=== PATIENT | female | born 1950 | race Caucasian/White ===

== ENCOUNTER → 2018-03-07 13:50 | Outpatient (CLI) | payer OTHER, SELFPAY ==
--- NOTE | 2018-03-07 14:03 | BI_ITS ---
MAMMOGRAPHY - UNILATERAL DIAGNOSTIC: LEFT BREAST REASON FOR EXAM: Female, 67 years old. Abnormal screening mammogram. PERTINENT HISTORY: Non-contributory. TECHNIQUE: 90 degree lateral view of the left breast was obtained. CAD: Full Field Digital Mammography with Computer Added Detection was performed. COMPARISON: Comparison is made with prior study dated February 04, 2018. FINDINGS: Breast Composition: The breasts are heterogeneously dense, which may obscure small masses. There is an 8.5 mm x 6.6 mm well-defined nodule in the superior slightly lateral aspect of the breast. Core lesion with ultrasound is recommended. No other significant abnormalities are identified. BI/DIAG MAMM W/CAD, UNILAT IMPRESSION: Subcentimeter density at the 11:00 position of the breast as described. Correlation with ultrasound is recommended. ASSESSMENT CATEGORY: BIRADS Category 0: Incomplete. Need additional imaging evaluation. A letter regarding these results will be sent to the patient by the facility within 30 days. Approximately 10% of breast cancers are not detected by mammography. A normal mammogram should not delay biopsy of a clinically suspicious abnormality. Electronically Signed: Jeremiah Montenegro MD at 15:33 EST Tel [phone], Service support ,
--- NOTE | 2018-03-07 14:19 | US_ITS ---
STUDY: ULTRASOUND BREAST - LEFT REASON FOR EXAM: Female, 67 years old. Abnormal mammogram. TECHNIQUE: Axial and longitudinal images of the LEFT breast were performed with a high resolution ultrasound transducer. COMPARISON: Comparison is made with prior outside examination dated February 04, 2018 and prior mammogram done earlier in the day. FINDINGS: LEFT Breast: There is a 1 cm x 0.8 cm x 0.6 cm cyst at the 11 o'clock position breast at 1 cm from the nipple. US/Breast Limited Unilateral IMPRESSION: The mammographic and a mildly corresponds to a 1 cm x 0.8 cm x 0.6 cm cyst. ASSESSMENT CATEGORY: BIRADS Category 2: Benign. A letter regarding these results will be sent to the patient by the facility within 30 days. Electronically Signed: Jeremiah Montenegro MD at 15:30 EST Tel [phone], Service support ,
== END ==
PROVIDERS: Family Provider Preventive Medicine Occupational Medicine; PCP Preventive Medicine Occupational Medicine; Referring Provider Obstetrics & Gynecology; Visit Provider Nurse Practitioner Family
DX: R92.8 Other abnormal and inconclusive findings on diagnostic imaging of breast (principal)
CPT/HCPCS: 76642; 77065

== ENCOUNTER 2018-05-23 06:46 | Day surgery (SDC) | payer MEDICARE, SELFPAY ==
[2018-05-23 07:02] VITALS: BP 152/97; PULSE 89; RESP 16; TEMP 36; O2SAT 100; BMI 30.1
--- NOTE | 2018-05-23 08:28 | PCM.HP.STD ---
Problem List (1) Family history of colon cancer Status: Acute History of Present Illness Date of Admission: 05/23/18 The patient is a 67 year old F who presents for a colonoscopy. She has a fairly history of colon cancer in both her sister and her father. She is not been complaining of any abdominal complaints. Past Medical History Allergies codeine Adverse Reaction (Verified 05/23/18 07:06) Vomiting Home Medications: Ambulatory Orders Medication Instructions Recorded Cholecalciferol (VIT D3) [Vitamin 1,000 unit PO DAILY 01/22/14 D3] Multivit-Min/FA/Lycopene/Lut 1 each PO DAILY 01/22/14 [Centrum Silver Tablet] Nortriptyline HCl 25 mg PO QHS 01/22/14 Omeprazole [Prilosec] 20 mg PO BID 01/22/14 Vitamin B 100 1 tab PO DAILY 01/22/14 Levothyroxine Sodium [Levoxyl] 150 mcg PO AVILES@0600 02/13/14 Levothyroxine [Synthroid] 100 mcg PO MOTUWETHFRSA@0600 02/13/14 Triamterene/Hydrochlorothiazid 0.5 - 1 tab PO QHS 02/13/14 [Triamterene-Hctz 37.5-25 mg Tb] Aspirin [Aspir 81] 81 mg PO QHS 05/19/18 Lorazepam [Ativan] 0.5 mg PO BID 05/19/18 Meloxicam [Mobic] 15 mg PO DAILY 05/19/18 Smoking Status: Former smoker Tobacco Use: Non-smoker - *Family History Sibling History Items: Cancer - Only cancer Paternal History Items: Cancer - Colon cancer Review of Systems Constitutional: Denies: Chills, Fever, Weight Change Cardiovascular: Denies: Chest Pain, Chest Pressure, Chest Tightness, Palpitations Respiratory: Denies: Cough, Hemoptysis, Shortness of breath at rest, Shortness of breath upon exertion, Wheezing Gastrointestinal: Denies: Abdominal Pain, Constipation, Diarrhea, Hematemesis, Nausea, Melena, Vomiting VTE Information - Inpt Only VTE Present on Admission: No VTE Mechan Device Prophylaxis: SCD's VTE Pharm Prophylaxis ordered?: No Reason prophylaxis not ordered:: Treatment Not Indicated Patient Problems: Active and Suspected Problems Family history of colon cancer (Acute) - Physical Exam General: Alert, Oriented x3 Lungs: Clear to auscultation Cardiovascular: Regular rate, Regular Rhythm, No murmurs Abdomen: Bowel Sounds Present, Soft, Non Tender, Non-Distended Vital Signs Temp Pulse Resp BP Pulse Ox 96.8 F L 89 16 152/97 H 100 05/23/18 07:02 05/23/18 07:02 05/23/18 07:02 05/23/18 07:02 05/23/18 07:02 Oxygen Delivery Method Room Air Weight: 192 lb 7.417 oz Body Mass Index (BMI) 30.1 Assessment/Plan All Active Problems Family history of colon cancer (Acute) Plan will be to perform a colonoscopy. Risk benefits were reviewed with the patient. They include bleeding possible injury to the colon which could require further surgery. She agrees to proceed.
[2018-05-23 08:30] VITALS: BP 152/97; BP 158/91; PULSE 80; RESP 16; TEMP 36.1; O2SAT 93
--- NOTE | 2018-05-23 08:33 | OP.ENDO_ITS ---
05/23/2018 Bienvenido Morales [address] [place] [address] Re : Colonoscopy procedure for Jessica Ray Dear Dr. Morales This procedure was performed on Wednesday, May 23, 2018. My impressions and recommendations are as follows: Impressions : - Diverticulosis in the sigmoid colon. - The examination was otherwise normal. - No specimens collected. Recommendations : - Discharge patient to home. - Resume previous diet. - Continue present medications. - Repeat colonoscopy in 5 years for surveillance. - Return to primary care physician at appointment to be scheduled. My findings are described in the full procedure note, which is enclosed. If I can be of further assistance, please feel free to contact me at Doctor phone number(s): , Fax: [phone], Work: . Sincerely, MD Jay Jane MD 05/23/2018 8:33:04 AM This report has been signed electronically.
[2018-05-23 08:35] VITALS: BP 152/97; BP 177/82; PULSE 89; RESP 16; O2SAT 94
[2018-05-23 08:40] VITALS: BP 152/97; BP 163/82; PULSE 89; RESP 18; O2SAT 95
[2018-05-23 08:46] VITALS: BP 152/97; BP 167/87; PULSE 75; RESP 16; TEMP 36.3; O2SAT 95
== END 2018-05-23 09:37 | disposition home or self-care (01) ==
LOC: EN 06:47 → AC 06:49
PROVIDERS: Family Provider Preventive Medicine Occupational Medicine; PCP Preventive Medicine Occupational Medicine; Referring Provider Surgery; Visit Provider Surgery
PROC: 0DJD8ZZ Inspection of Lower Intestinal Tract, Via Natural or Artificial Opening Endoscopic (ICD-10-PCS; CPT 45378; principal; 2018-05-23 07:55)
DX: K57.30 Diverticulosis of large intestine without perforation or abscess without bleeding (principal); I10 Essential (primary) hypertension; Z80.0 Family history of malignant neoplasm of digestive organs; Z87.891 Personal history of nicotine dependence
CPT/HCPCS: G0105; J7120; J1610; J2405

== ENCOUNTER → 2019-11-21 15:11 | Outpatient (CLI) | payer MEDICARE, SELFPAY ==
--- NOTE | 2019-11-21 15:16 | US_ITS ---
STUDY: RENAL ULTRASOUND - COMPLETE REASON FOR EXAM: Female, 69 years old. Chronic kidney disease. TECHNIQUE: Ultrasound evaluation of the kidneys was performed with real-time and static jacobson-scale imaging. COMPARISON: None. FINDINGS: RIGHT KIDNEY: Normal location of the right kidney, which is normal in size. The right kidney measures 7.9 cm. There is diffuse thinning of the renal cortex. The renal cortex measures 0.9 cm. Prominent column of LIZY. There is no right renal mass or cyst. There are no right renal calculi. There is no right hydronephrosis. DISTAL RIGHT URETER: There is non-visualization of the distal right ureter. There is no demonstrated right ureterovesical junction calculus. There is no demonstrated right ureteral jet. LEFT KIDNEY: Normal location of the left kidney, which is normal in size. The left kidney measures 9.3 cm. There is diffuse thinning of the renal cortex. The renal cortex measures 0.8 cm. Prominent column of LIZY. There is no left renal mass or cyst. There are no left renal calculi. There is no left hydronephrosis. DISTAL LEFT URETER: There is non-visualization of the distal left ureter. There is no demonstrated left ureterovesical junction calculus. There is no demonstrated left ureteral jet. BLADDER: The distended urinary bladder has a volume of 435 ml. There is a normal wall thickness of the distended urinary bladder. There is no demonstrated mass within the urinary bladder. There are no demonstrated bladder calculi. US/Kidney and Bladder IMPRESSION: Low normal small kidneys with bilateral cortical thinning. Electronically Signed: Dickson Parekh DO at 21:23 EDT Tel [phone], Service support ,
[2019-11-21 16:33] LABS: Hematocrit 39.7 % (37-47); Mean Corp Hgb Conc 32.7 g/dL (32-36); Mean Corpuscular Hgb 31.6 pg (27.0-32.0); Mean Corpuscular Volume 96.6 fL (81-99); Platelet Count 286 K/mm3 (150-450); RBC Distribution Width CV 12.6 % (11.6-14.6); RBC Distribution Width SD 44.4 fl (35.1-43.9); Red Blood Count 4.11 M/mm3 (4.2-5.4); White Blood Count 6.6 K/mm3 (4.4-11.0)
[2019-11-21 16:45] LABS: Protein, Urine (Random) < 6.0 mg/dL (<11.9)
[2019-11-21 17:06] LABS: Color, Urine Yellow (Yellow); Glucose, Dipstick Normal (Normal); Ketone-Dipstick Negative (Negative); Leukocyte Esterase-Dipstick Negative /ul (Negative); Nitrite-Dipstick Negative (Negative); Occult Blood-Urine Negative /ul (Negative); Protein-Dipstick Negative (Negative); Urine Bilirubin Dipstick Negative (Negative); Urine Clarity Clear (Clear); Urine Urobilinogen Normal (Normal); Urine pH 6.5 (5.0 - 8.0)
[2019-11-21 17:21] LABS: Anion Gap 3 (5-15); BUN 21 mg/dL (7-18); BUN/Creat Ratio 13.5 RATIO (10-20); Chloride 107 mmol/L (98-107); Creatinine, Serum 1.55 mg/dL (0.55-1.02); EST Glomerular Filtration Rate 35 mL/min (>60); Est Glom Filt Rate - Afr Amer 43 mL/min (>60); Ferritin 194 ng/mL (8-252); Glucose 99 mg/dL (74-106); Iron 66 ug/dL (50-170); Iron Binding Capacity,Total 253 ug/dL (250-450); PERCENT IRON SATURATION 26.1 % (15.0-55.0); Potassium 4.2 mmol/L (3.5-5.1); Sodium Level 143 mmol/L (136-145); Uric Acid 6.8 mg/dL (2.6-6.0)
[2019-11-21 17:52] LABS: Vitamin D,25 Hydroxy 33.6 ng/mL
[2019-11-22 09:55] LABS: PTHIN 37.9 pg/mL (18.4-80.1)
== END ==
PROVIDERS: PCP Preventive Medicine Occupational Medicine; Referring Provider Student in an Organized Health Care Education/Training Program; Visit Provider Student in an Organized Health Care Education/Training Program
DX: N18.3 Chronic kidney disease, stage 3 (moderate) (principal); D63.1 Anemia in chronic kidney disease; E55.9 Vitamin D deficiency, unspecified
CPT/HCPCS: 36415; 76770; 80048; 81002; 82306; 82570; 82728; 83540; 83550; 83970; 84156; 84550; 85027

== ENCOUNTER → 2020-01-09 12:55 | Outpatient (CLI) | payer MEDICARE, SELFPAY ==
[2020-01-09 15:17] LABS: Anion Gap 4 (5-15); BUN 21 mg/dL (7-18); BUN/Creat Ratio 13.5 RATIO (10-20); Calcium,Total 9.2 mg/dL (8.5-10.1); Chloride 108 mmol/L (98-107); Creatinine, Serum 1.56 mg/dL (0.55-1.02); EST Glomerular Filtration Rate 35 mL/min (>60); Est Glom Filt Rate - Afr Amer 42 mL/min (>60); Glucose 94 mg/dL (74-106); Sodium Level 141 mmol/L (136-145)
== END ==
PROVIDERS: PCP Preventive Medicine Occupational Medicine; Referring Provider Student in an Organized Health Care Education/Training Program; Visit Provider Student in an Organized Health Care Education/Training Program
DX: N18.30 Chronic kidney disease, stage 3 unspecified (principal)
CPT/HCPCS: 36415; 80048

== ENCOUNTER → 2020-03-06 08:42 | Outpatient (CLI) | payer MEDICARE, SELFPAY ==
--- NOTE | 2020-03-06 08:45 | RDU_ITS ---
Reason For Study: HTN Right Renal Artery Left Renal Artery Right renal artery ostium 97.3/11.5 Left renal artery ostium 90.2/17.1 RSV/EDV. PSV/EDV. Right renal artery proximal Left renal artery proximal PSV/EDV 104.6/17 PSV/EDV. 133.6/36.9 . Right renal artery mid 88.2/13.3 Left renal artery mid 85.7/27.2 PSV/EDV. PSV/EDV . Right renal artery distal 85.3 Left renal artery distal 91.1/21.7 PSV/EDV. PSV/EDV. Right RAR 1.07. Left RAR 1.37. Right Renal Parenchyma Left Renal Parenchyma Upper Pole Medula 24.9/6.8 PSV/EDV. Left upper pole medulla 34.6/10.9 Right upper pole medulla EDR 0.27 . PSV/EDV . Right upper pole medulla R.I. Left upper pole medulla EDR 0.31 . 0.73 . Left upper pole medulla R.I. 0.69 . Upper Lorenzo Cortx 16.1/5.1 PSV/EDV. UP Cortex 26.4/9 PSV/EDV. Right upper pole cortex EDR 0.32 . Left upper pole cortex EDR 0.34 . Right upper pole cortex R.I. 0.68 . Left upper pole cortex R.I. 0.66 . Right lower Pole medulla 22.7/7.3 Left lower Pole medulla 32.8/9 PSV/EDV . PSV/EDV . Right lower pole medulla EDR 0.32 . Left lower pole medulla EDR 0.28 . Right lower pole medulla R.I. Left lower pole medulla R.I. 0.72 . 0.68 . Lower Pole Cortx 24.6/8.1 PSV/EDV. Lower Pole Cortex 16.1/5.1 PSV/EDV. Left lower pole cortex EDR 0.33 . Right lower pole cortex EDR 0.32 . Left lower pole cortex R.I. 0.67 . Right lower pole cortex R.I. 0.68 . Left Renal Hilar Right Renal Hilar LT Hilar avg 49.2/17.5 PSV/EDV . Right Hilar avg 41.3/11.1 PSV/EDV. Left hilar acceleration time 100 Right hilar acceleration time 80 m/sec. m/sec. Left Renal Dimensions Right Renal Dimensions Left kidney size 9.35 cm . Right kidney size 7.31 cm . Left cortical dimension 1.04 cm . Right cortical dimension 0.84 cm . Aorta Proximal abdominal aorta 1.48 x 1.48 cm . Proximal abdominal aorta peak systolic velocity is 97.4 cm/sec . Distal abdominal aorta 1.38 x 1.38 cm . Distal abdominal aorta peak systolic velocity is 75.4 cm/sec . Interpretation Summary Dimensions of the intra-abdominal aorta appear normal, without evidence of aneurysmal dilatation. Renal artery velocities are bilaterally normal. The right acceleration time is normal . The left acceleration time is elevated . Renal-aortic ratios are bilaterally normal. There is no evidence of hemodynamically significant renal artery stenosis on either side. Renovascular resistance appears to be bilaterally normal . The right cortical dimension is decreased. The left cortical dimension is normal. The right kidney is small in size. The left kidney is normal in size. Ordering Physician: Rosaura Atkins Referring Physician: Bienvenido Morales Performed By: Hanna Suazo RVT
== END ==
PROVIDERS: PCP Preventive Medicine Occupational Medicine; Referring Provider Internal Medicine Nephrology; Visit Provider Internal Medicine Nephrology
DX: I12.9 Hypertensive chronic kidney disease with stage 1 through stage 4 chronic kidney disease, or unspecified chronic kidney disease (principal); N18.32 Chronic kidney disease, stage 3b
CPT/HCPCS: 93975

== ENCOUNTER → 2020-04-11 11:13 | Outpatient (CLI) | payer MEDICARE, SELFPAY ==
[2020-04-11 11:54] LABS: Hematocrit 43.5 % (37-47); Hemoglobin 14.3 g/dL (12.0-15.0); Mean Corp Hgb Conc 32.9 g/dL (32-36); Mean Corpuscular Hgb 31.5 pg (27.0-32.0); Mean Corpuscular Volume 95.8 fL (81-99); Mean Platelet Vol. 11.8 fl (6.2-12.0); Platelet Count 308 K/mm3 (150-450); RBC Distribution Width CV 13.1 % (11.6-14.6); Red Blood Count 4.54 M/mm3 (4.2-5.4); White Blood Count 7.3 K/mm3 (4.4-11.0)
[2020-04-11 12:16] LABS: Albumin, Serum 3.8 g/dL (3.2-5.0); BUN 21 mg/dL (7-18); BUN/Creat Ratio 13.8 RATIO (10-20); Calcium,Total 9.2 mg/dL (8.5-10.1); Chloride 105 mmol/L (98-107); Creatinine, Serum 1.52 mg/dL (0.55-1.02); EST Glomerular Filtration Rate 36 mL/min (>60); Est Glom Filt Rate - Afr Amer 44 mL/min (>60); Glucose 120 mg/dL (74-106); Phosphorus 3.1 mg/dL (2.5-4.9); Potassium 4.1 mmol/L (3.5-5.1); Sodium Level 140 mmol/L (136-145)
== END ==
PROVIDERS: PCP Preventive Medicine Occupational Medicine; Referring Provider Internal Medicine Nephrology; Visit Provider Internal Medicine Nephrology
DX: N18.32 Chronic kidney disease, stage 3b (principal)
CPT/HCPCS: 36415; 80069; 83970; 85027

== ENCOUNTER → 2020-09-11 13:33 | Outpatient (CLI) | payer MEDICARE, SELFPAY ==
--- NOTE | 2020-09-11 13:35 | BI_ITS ---
MAMMOGRAPHY - BILATERAL SCREENING REASON FOR EXAM: Female, 69 years old. Routine annual screening examination. PERTINENT HISTORY: Non-contributory. TECHNIQUE: Digital bilateral breast adryan (3D mammographic acquisition) in the CC and MLO projections. 2-D mediolateral oblique (MLO) and craniocaudad (CC) views of both breasts were obtained. CAD: Full Field Digital Mammography with Computer Added Detection was performed. COMPARISON: Comparison is made with prior unilateral mammogram dated 03/07/2018. FINDINGS: Breast Composition: The breasts are heterogeneously dense, which may obscure small masses. There are no dominant masses or suspicious calcifications. Stable small benign-appearing bilateral axillary lymph nodes. No other significant abnormalities are identified. There has been no significant change since the prior study. BI/SCRN MAMM (CAD)W/ADRYAN BILAT IMPRESSION: Stable bilateral screening mammogram. Yearly follow-up mammogram recommended. (A) ASSESSMENT CATEGORY: BIRADS Category 2: Benign. A letter regarding these results will be sent to the patient by the facility within 30 days. Approximately 10% of breast cancers are not detected by mammography. A normal mammogram should not delay biopsy of a clinically suspicious abnormality. [id number] Electronically Signed: Jeremiah Montenegro MD at 14:17 EDT , Service support ,
== END ==
PROVIDERS: PCP Preventive Medicine Occupational Medicine; Referring Provider Obstetrics & Gynecology; Visit Provider Obstetrics & Gynecology
DX: Z12.31 Encounter for screening mammogram for malignant neoplasm of breast (principal)
CPT/HCPCS: 77063; 77067

== ENCOUNTER → 2020-10-16 11:07 | Outpatient (CLI) | payer MEDICARE, SELFPAY ==
[2020-10-16 12:20] LABS: Albumin, Serum 3.9 g/dL (3.2-5.0); BUN 23 mg/dL (7-18); BUN/Creat Ratio 16.3 RATIO (10-20); Calcium,Total 9.1 mg/dL (8.5-10.1); Chloride 102 mmol/L (98-107); Creatinine, Serum 1.41 mg/dL (0.55-1.02); EST Glomerular Filtration Rate 39 mL/min (>60); Est Glom Filt Rate - Afr Amer 47 mL/min (>60); Glucose 102 mg/dL (74-106); Potassium 4.3 mmol/L (3.5-5.1); Sodium Level 140 mmol/L (136-145)
== END ==
PROVIDERS: PCP Preventive Medicine Occupational Medicine; Referring Provider Internal Medicine Nephrology; Visit Provider Internal Medicine Nephrology
DX: N18.32 Chronic kidney disease, stage 3b (principal)
CPT/HCPCS: 36415; 80069

== ENCOUNTER → 2020-12-23 09:48 | Outpatient (CLI) | payer MEDICARE, SELFPAY | PROVIDERS: PCP Preventive Medicine Occupational Medicine; Visit Provider Physician Assistant | DX: Z20.822 Contact with and (suspected) exposure to COVID-19 (principal) | CPT/HCPCS: 87635; U0005; U0003 ==

== ENCOUNTER 2021-03-27 11:12 | Outpatient (CLI) | payer MEDICARE, SELFPAY ==
[2021-03-27 12:24] LABS: Erythrocyte Sedimentation Rate 7 mm/hr (0-30)
[2021-03-27 12:27] LABS: Hematocrit 40.2 % (37-47); Hemoglobin 13.3 g/dL (12.0-15.0); Mean Corp Hgb Conc 33.1 g/dL (32-36); Mean Corpuscular Hgb 32.2 pg (27.0-32.0); Mean Corpuscular Volume 97.3 fL (81-99); Platelet Count 238 K/mm3 (150-450); RBC Distribution Width SD 46.4 fl (35.1-43.9); Red Blood Count 4.13 M/mm3 (4.2-5.4); White Blood Count 5.1 K/mm3 (4.4-11.0)
[2021-03-27 13:19] LABS: CRP 4.46 mg/L (0.0-3.0); Rheumatoid Factor < 10.0 IU/mL (<15)
[2021-03-28 19:04] LABS: ANTINUCLEAR ANTIBODIES DIRECT Negative (Negative)
[2021-03-28 21:44] LABS: CCP IgG Antibodies 5 units (0-19)
== END 2021-03-27 23:59 | disposition short-term general hospital (02) ==
LOC: LAB 11:15
PROVIDERS: PCP Preventive Medicine Occupational Medicine; Referring Provider Orthopaedic Surgery Hand Surgery; Visit Provider Orthopaedic Surgery Hand Surgery
DX: M19.041 Primary osteoarthritis, right hand (principal); N18.32 Chronic kidney disease, stage 3b
CPT/HCPCS: 36415; 85027; 85652; 86038; 86140; 86200; 86431

== ENCOUNTER 2021-04-10 10:12 | Outpatient (CLI) | payer MEDICARE, SELFPAY ==
--- NOTE | 2021-04-10 10:25 | EKG12_ITS ---
Test Reason : PRE-OP Blood Pressure : / mmHG Vent. Rate : 064 BPM Atrial Rate : 064 BPM P-R Int : 142 ms QRS Dur : 088 ms QT Int : 424 ms P-R-T Axes : 030 -24 -16 degrees QTc Int : 437 ms Normal sinus rhythm with sinus arrhythmia Poor R wave progression Nonspecific T wave abnormality Confirmed by MARIA L COVARRUBIAS, BATSHEVA ([id number]), photography editor WATSON AYERS ([id number]) on 04/11/2021 10:56:41 AM Referred By: ISAURA Confirmed By:BATSHEVA LISA MD
[2021-04-10 12:25] LABS: Hemoglobin 13.3 g/dL (12.0-15.0)
[2021-04-10 12:49] LABS: Anion Gap 3 (5-15); BUN 23 mg/dL (7-18); BUN/Creat Ratio 17.7 RATIO (10-20); Calcium,Total 8.6 mg/dL (8.5-10.1); Chloride 107 mmol/L (98-107); EST Glomerular Filtration Rate 43 mL/min (>60); Est Glom Filt Rate - Afr Amer 52 mL/min (>60); Glucose 104 mg/dL (74-106); Potassium 4.6 mmol/L (3.5-5.1); Sodium Level 139 mmol/L (136-145)
== END 2021-04-10 23:59 | disposition home or self-care (01) ==
PROVIDERS: PCP Preventive Medicine Occupational Medicine; Visit Provider Orthopaedic Surgery Hand Surgery
DX: Z01.810 Encounter for preprocedural cardiovascular examination (principal); M19.041 Primary osteoarthritis, right hand; M71.341 Other bursal cyst, right hand
CPT/HCPCS: 36415; 80048; 85018; 93005

== ENCOUNTER 2021-06-04 11:05 | Outpatient (CLI) | payer MEDICARE, SELFPAY ==
[2021-06-04 12:17] LABS: Albumin, Serum 3.6 g/dL (3.2-5.0); BUN 25 mg/dL (7-18); BUN/Creat Ratio 17.2 RATIO (10-20); Calcium,Total 9.3 mg/dL (8.5-10.1); Chloride 108 mmol/L (98-107); Creatinine, Serum 1.45 mg/dL (0.55-1.02); EST Glomerular Filtration Rate 38 mL/min (>60); Est Glom Filt Rate - Afr Amer 46 mL/min (>60); Glucose 96 mg/dL (74-106); Phosphorus 2.7 mg/dL (2.5-4.9); Potassium 4.5 mmol/L (3.5-5.1); Sodium Level 138 mmol/L (136-145)
== END 2021-06-04 23:59 | disposition home or self-care (01) ==
LOC: LAB 11:08
PROVIDERS: PCP Preventive Medicine Occupational Medicine; Referring Provider Internal Medicine Nephrology; Visit Provider Internal Medicine Nephrology
DX: N18.32 Chronic kidney disease, stage 3b (principal)
CPT/HCPCS: 36415; 80069

== ENCOUNTER 2021-06-11 13:03 | Outpatient (CLI) | payer MEDICARE, SELFPAY ==
[2021-06-11 13:06] LABS: Bacteria 0 SEEN /hpf (None Seen); Mucous, Urine 0 SEEN /hpf (<or=2+); Red Blood Cells-Urine 0 SEEN /hpf (0-5); Squamous Epithelial Cells - UA 0 SEEN /hpf (5-10); White Blood Cells 0 SEEN /hpf (0-5)
[2021-06-11 15:02] LABS: Glucose, Dipstick Normal (Normal); Ketone-Dipstick Negative (Negative); Leukocyte Esterase-Dipstick 25 /ul (Negative); Nitrite-Dipstick Negative (Negative); Occult Blood-Urine Negative /ul (Negative); Protein-Dipstick Negative (Negative); Specific Gravity, Urine 1.015 (1.002-1.030); Urine Bilirubin Dipstick Negative (Negative); Urine Urobilinogen Normal (Normal)
[2021-06-11 15:19] LABS: Color, Urine Yellow (Yellow); Urine Clarity Clear (Clear)
== END 2021-06-11 23:59 | disposition home or self-care (01) ==
LOC: LABSPEC 13:03
PROVIDERS: PCP Preventive Medicine Occupational Medicine; Visit Provider Internal Medicine Nephrology
DX: R30.9 Painful micturition, unspecified (principal)
CPT/HCPCS: 81001

== ENCOUNTER → 2021-08-28 | Outpatient (CLI) | payer MEDICARE, SELFPAY ==
--- NOTE | 2021-08-28 12:26 | CT_ITS ---
STUDY: CT SCAN LOWER EXTREMITY LEFT REASON FOR EXAM: Female, 70 years old. KNEE ANDRESSA RADIATION DOSAGE (If Supplied By Facility): CTDIvol = ( 18.77 ) mGy, DLP = ( 1182.15 ) mGycm. Individualized dose optimization techniques were used for this CT.? TECHNIQUE: Multiple axial tomographic images of the left lower extremity were obtained. Coronal and sagittal reconstruction with thin as well. COMPARISON: None. FINDINGS: Imaging of the hip joint was obtained. There is a mild degree of joint space narrowing. No significant abnormality is seen. Imaging of the knee joint was obtained. There is a marked degree of joint space narrowing involving the medial compartment of knee joint with degenerative spur formation. There is a mild degree of joint space narrowing of the lateral compartment with degenerative spur formation. Small subchondral geodes seen in the lateral tibial plateau. Imaging of the ankle joint was obtained. No significant abnormality is seen. Marked degree of joint space narrowing involving the patellofemoral joint with large anterior distal femoral degenerative spur. Small joint effusion. CT/Extremity Lower without Contra IMPRESSION: Marked in degree of joint space narrowing involving the medial compartment of the knee joint and patellofemoral joint with degenerative spur formation. Small joint effusion. Electronically Signed: Jeremiah Montenegro MD at 13:54 EDT ,
== END | disposition home or self-care (01) ==
PROVIDERS: PCP Preventive Medicine Occupational Medicine; Referring Provider Orthopaedic Surgery; Visit Provider Orthopaedic Surgery
DX: M17.12 Unilateral primary osteoarthritis, left knee (principal); M25.562 Pain in left knee; G89.29 Other chronic pain
CPT/HCPCS: 73700

== ENCOUNTER 2021-09-29 05:20 | Day surgery (SDC) | payer MEDICARE, SELFPAY ==
[2021-09-18 17:36] LABS: Absolute Lymphocyte Count 2.26 X10^3/uL (0.83-4.51); Absolute Neutrophil Count 4.1 X10^3/uL (2.0-7.7); Basophil# 0.04 X10^3/uL; Basophil% 0.5 % (0-1); Eosinophil# 0.23 X10^3/uL; Eosinophils% 3.1 % (0-5); Hematocrit 38.2 % (37-47); Hemoglobin 12.8 g/dL (12.0-15.0); Lymphocyte # 2.26 X10^3/ul (0.83-4.51); Lymphocyte % 30.6 % (19-41); Mean Corp Hgb Conc 33.5 g/dL (32-36); Mean Corpuscular Hgb 32.2 pg (27.0-32.0); Mean Platelet Vol. 11.7 fl (6.2-12.0); Monocyte# 0.73 X10^3/uL; Monocyte% 9.9 % (0-10); NRBC Flagged by Analyzer 0 % (0-5); Neutrophil # 4.08 X10^3/uL (2.7-7.7); Neutrophil % 55.4 % (47-70); Platelet Count 289 K/mm3 (150-450); RBC Distribution Width CV 12.9 % (11.6-14.6); RBC Distribution Width SD 45.5 fl (35.1-43.9); Red Blood Count 3.98 M/mm3 (4.2-5.4); White Blood Count 7.4 K/mm3 (4.4-11.0)
[2021-09-18 18:22] LABS: AST(SGOT) 15 U/L (15-37); Alanine Aminotransfer ALT/SGPT 19 U/L (13-56); Albumin, Serum 3.5 g/dL (3.2-5.0); Alkaline Phosphatase 86 U/L (45-117); Anion Gap 6 (5-15); BUN 22 mg/dL (7-18); BUN/Creat Ratio 16.5 RATIO (10-20); Calcium,Total 9.2 mg/dL (8.5-10.1); Chloride 110 mmol/L (98-107); Creatinine, Serum 1.33 mg/dL (0.55-1.02); EST Glomerular Filtration Rate 42 mL/min (>60); Est Glom Filt Rate - Afr Amer 51 mL/min (>60); Globulin 3.6 g/dL (2.2-4.2); Glucose 115 mg/dL (74-106); Protein, Total 7.1 g/dL (6.4-8.2); Sodium Level 141 mmol/L (136-145)
[2021-09-18 19:31] LABS: Hemoglobin A1c 5.7 % (3.8-5.6)
[2021-09-19 08:32] LABS: Magnesium 1.9 mg/dL (1.6-2.6); Thyroid Stim Hormone (TSH) 0.91 uIU/mL (0.358-3.74)
--- NOTE | 2021-09-26 08:37 | EKG12_ITS ---
Test Reason : PRE OP Blood Pressure : / mmHG Vent. Rate : 068 BPM Atrial Rate : 068 BPM P-R Int : 126 ms QRS Dur : 084 ms QT Int : 410 ms P-R-T Axes : 008 -30 -23 degrees QTc Int : 435 ms Normal sinus rhythm with sinus arrhythmia Left axis deviation Nonspecific T wave abnormality Abnormal ECG Confirmed by TIGRE COVARRUBIAS, AISHA ([id number]), telegraph editor WATSON AYERS ([id number]) on 09/29/2021 11:33:13 AM Referred By: Feliciano Carey Confirmed By:GRUPO LANDEROS MD
[2021-09-29] VITALS (9 sets, daily range): BP systolic 93–168; BP diastolic 39–86; PULSE 62–83; RESP 16; TEMP 36.1–36.6; O2SAT 96–100; BMI 32.4
[2021-09-29] MEDS: Acetaminophen 500 MG Tablet 1000 MG PO (06:38)
[2021-09-29] MEDS: Gabapentin 600 MG Tablet PO (06:38)
[2021-09-29] MEDS: Magnesium 2 GM IV (06:42)
[2021-09-29] MEDS: Lactated Ringers 1,000 ML 125 ML IV (06:43)
[2021-09-29 07:20] LABS: Bedside Glucose 92 mg/dL (74-106)
[2021-09-29] MEDS: Cefazolin 2 GM in 0.9% Normal Saline 100 ML IV (07:25)
[2021-09-29] MEDS: TXA 1000mg in NS100 100ml (IVPB at Incision) 660 MG IV (07:25)
--- NOTE | 2021-09-29 08:56 | OP.PCM_ITS ---
Report of Operation Date of Procedure: 09/29/21 Pre-Operative Diagnosis: OA left knee Post-Operative Diagnosis: same Surgery/Procedure Performed:: Left TKR Description of Surgical Findings:: Report of Operation Date of Procedure: 09/29/2021 Preoperative Diagnosis: [left ] knee primary osteoarthritis Postoperative Diagnosis: [left ] knee primary osteoarthritis Operation: Robotic Assisted Knee Total Arthroplasty, [ left ] knee Surgeon: Dr Feliciano Carey DO Boatswains Mate: Abraham Narayanan PA-C Anesthesia: spinal Anesthesiologist: Omar Styles M.D. Findings: Stable knee with good patella tracking Specimen(s): Bony cuts Complications: No intraoperative complications Estimated Blood Loss: 30 cc IV Fluids: 1000 cc crystalloid Implants Used: 1. [place] Triathlon press-fit CR size 3 femur 2. Peter Triathlon size 4 tibia 3. 32 mm patella 4. 9 mm CS polyethylene Brief History Operative Indications: [ (71 y\o femalr) ] with history of [ left ] knee osteoarthrosis with radiographic findings with loss of joint space, osteophyte formation and subchondral sclerosis. Failed conservative measures as mentioned in the H&P. Discussion of total knee arthroplasty as well as risk and benefits were discussed with the patient including but not limited to blood loss, DVTs, PEs, neurovascular damage, general risk of anesthesia including loss of life, and stiffness or instability were also discussed with the patient. Patient demonstrated understanding and was able to sign informed consent. Procedure: On the date of procedure, patient's [left ] lower extremity was marked in the preoperative area. The patient was then taken back to the operating room where that patient was placed on the table in the supine position. All bony prominences were identified and well-padded. Anesthesia assumed control of the C-spine and airway throughout the remainder of the procedure. A tourniquet was placed on the [left ] upper thigh and the leg was prepped in a sterile fashion. The surgeon then scrubbed at this time. Upon reentering the room, the [ left ] lower extremity was draped in a standard orthopedic fashion. A timeout was then called and everyone agreed upon the side, the site, the procedure to be performed, patient's identity and antibiotics given. Esmarch bandage was used to exsanguinate the extremity and the tourniquet was placed up to 250 mmHg with the knee in flexion. A midline skin incision was made and a sharp dissection was taken down through skin, subcutaneous tissue and fat. The standard medial parapatellar incision was made and the patella was subluxed laterally. An appropriate deep MCL release was done and the fat pad was resected. Our attention was then directed to the patella. The patella was everted and a flat resection was made. The knee was then flexed up and 2 femoral pins were placed inside the incision and 2 tibial pins were placed outside the incision in the medial tibia bicortically. Once this was completed, the 2 checkpoints in the femur and tibia were placed. Knee was then flexed up and the bony landmarks were registered. Once the was completed, the knee taken through range of motion and manually stressed allowing us to plan for an appropriate tibial cut. The robotic arm was brought into the field sterilely and checkpoint and saw were registered. Based on the patient's deformity, the tibial cut was made in [2 degrees varus ]. At this time, the tensioner was then placed in the joint and ligament tension was checked at 90 degrees and full extension. Based on the patient's ligamentous tension, appropriate adjustments were made to the operative plan and ligament releases were done. Once we were happy with our operative plan with balanced flexion and extension gaps, our attention was directed to the femur. The robot was brought into the field sterilely and registered. Posterior condylar cuts, anterior chamfer cuts and anterior cuts were appropriately made for a [ size 3 ] femur. When these were completed, the saws were switched out in the distal femoral and posterior chamfer cuts were made. Protecting the soft tissue throughout this time. A [ size 4 ] base plate was selected. The knee was flexed to 90 degrees and soft tissues and posterior osteophytes were removed from the joint. 40 cc of the periarticular injection was injected into the posterior medial corner of the joint. The appropriate trials were then placed on the femur and tibia. A trial polyethylene was trialed to ensure proper balancing and stability of the knee. The appropriate tibial internal rotation was then marked with a bovie. Our attention was then directed to the patella. The lug holes were drilled and the patella trial was placed. Patellar tracking was checked and deemed appropriate. Once we were happy, lug holes were drilled for the femur and trial components were removed. The tibia was subluxed and pinned into place and the keel was punched and drilled appropriately. Final components were verified and opened. The wound was copiously irrigated with normal saline. The components were impacted into place with the tibia, femur and finally the patella. The trial poly component was placed and the knee was placed in full extension. The tracking, alignment and balance were verified and a [9 mm CS ] polyethylene component was placed. Once the final components were placed an Irrisept lavage was performed and the wound was copiously irrigated with normal saline solution and the periarticular injection was given. the wound was closed in a layer-servin fashion using #1 vicryl interrupted sutures for the arthrotomy, 2-0 interrupted vicryl suture for the subcuticular layer and marya for final skin closure. A sterile compressive dressing was then placed. The patient was then awakened from anesthesia, transferred to the [facility] and transferred to the PACU for recovery. My physician printing bindery assistant was a vital part of this case. He was important in appropriate retraction during the case, and protection of soft tissues during bony cuts. His intimate knowledge of the case and my steps aided in safe and expedient completion of the procedure as well as appropriate position of the leg during the case. He was also vital in assisting with closure under my direct supervision. Due to the complexity of this case, robotic arm was used to assist in the surgery to improve accuracy and clinical outcomes. Post-op Plan: DVT ppx; ASA 81 mg BID, thigh high compression stockings Follow up: in office in 2 weeks for wound check PT: to start POD #0 at hospital, outpatient PT should be arranged. Preoperative antibiotic: Ancef 2 grams IV Felicinao Carey DO Surgeon: Feliciano Carey program manager: Abraham Narayanan Type of Anesthesia: Spinal Anesthesiologist: Omar Styles Estimated Blood Loss (mL): 30 cc Fluids Replaced: 1000 cc crystalloid Admit VTE Documentation VTE Present on Admission: No VTE Mechan Device Prophylaxis: Thigh High MIMI Hose VTE Pharm Prophylaxis ordered?: Yes
[2021-09-29] MEDS: Lactated Ringers 1,000 ML 999 ML IV (09:44)
--- NOTE | 2021-09-29 09:50 | RAD_ITS ---
STUDY: XR Knee 1 or 2 Views 09/29/2021 4:10 PM REASON FOR EXAM: Female, 71 years old. post op TKR -- in PACU TECHNIQUE: XR Knee 1 or 2 Views LEFT COMPARISON: None FINDINGS: There is no fracture or dislocation. There is anatomic alignment. Total knee arthroplasty. Soft tissue edema. Skin marya are seen along the anterior midline aspect of the knee. There is an air-fluid level seen in the suprapatellar region. Joint space is preserved. Subcutaneous air is noted. RAD/Knee 1 or 2 Views IMPRESSION: Successful total knee arthroplasty. Electronically Signed: Bill Allen MD at 16:11 EDT ,
[2021-09-29] MEDS: 0.9% Normal Saline 1,000 ML 125 ML IV (10:57)
== END 2021-09-29 14:43 | disposition home or self-care (01) ==
LOC: SDC 05:20 → AC 05:20
PROVIDERS: Anesthesiology; PCP Preventive Medicine Occupational Medicine; Referring Provider Orthopaedic Surgery; Visit Provider Orthopaedic Surgery
PROC: 0SRD0JZ Replacement of Left Knee Joint with Synthetic Substitute, Open Approach (ICD-10-PCS; CPT 27447; principal; 2021-09-29 07:00)
DX: M17.12 Unilateral primary osteoarthritis, left knee (principal); E07.9 Disorder of thyroid, unspecified; Z79.899 Other long term (current) drug therapy; Z79.82 Long term (current) use of aspirin; K21.9 Gastro-esophageal reflux disease without esophagitis; E78.00 Pure hypercholesterolemia, unspecified; F41.9 Anxiety disorder, unspecified; Z87.19 Personal history of other diseases of the digestive system; Z87.898 Personal history of other specified conditions; I10 Essential (primary) hypertension; R06.02 Shortness of breath; Z86.16 Personal history of COVID-19; M79.7 Fibromyalgia; Z87.891 Personal history of nicotine dependence
CPT/HCPCS: 27447; 01402; 64447; S2900; 36415; 73560; 80048; 80053; 82962; 83036; 83735; 84443; 85025; 87081; 93005; 97162; C1776; J7030; J7120; J2405

== ENCOUNTER → 2021-10-01 | Outpatient (CLI) | payer MEDICARE, SELFPAY ==
--- NOTE | 2021-10-01 12:51 | VDLE_ITS ---
Reason For Study: LLE PAIN Procedure LEFT This is a venous duplex using B-mode, color GSV is normal. flow and spectral Doppler. CFV is compressible, spontaneous, phasic, Exam performed in department. competent, and demonstrates normal The study was technically difficult. augmentation. Due to LLE swelling. FV is compressible, spontaneous, phasic, A preliminary report was called and/or faxed competent and demonstrates normal to Dr. Carey @ [phone] @ 1:30 pm. augmentation. POP V is compressible, spontaneous, phasic, competent and demonstrates normal augmentation. T/P Trunk is compressible. PTV is compressible. LT PerV is compressible. VL/Venous Duplex US, Unilateral Interpretation Summary Deep veins of the left lower extremity are patent and compressible segmentally. There is no evidence of left lower extremity deep vein thrombosis. Valvular competence appears intac t within the proximal deep venous system on the left . The left great saphenous vein appears patent a nd compressible segmentally. Ordering Physician: Feliciano Carey Referring Physician: Bienvenido Morales Performed By: Kimberly Jacobs, PAOLO, RVT
== END | disposition home or self-care (01) ==
LOC: CVS 12:50
PROVIDERS: PCP Preventive Medicine Occupational Medicine; Referring Provider Orthopaedic Surgery; Visit Provider Orthopaedic Surgery
DX: M79.662 Pain in left lower leg (principal)
CPT/HCPCS: 93971

== ENCOUNTER → 2022-02-03 | Outpatient (CLI) | payer MEDICARE, SELFPAY ==
[2022-02-03 13:50] LABS: Albumin, Serum 3.6 g/dL (3.2-5.0); BUN 20 mg/dL (7-18); Calcium,Total 9.1 mg/dL (8.5-10.1); Chloride 104 mmol/L (98-107); Creatinine, Serum 1.33 mg/dL (0.55-1.02); EST Glomerular Filtration Rate 42 mL/min (>60); Est Glom Filt Rate - Afr Amer 51 mL/min (>60); Glucose 106 mg/dL (74-106); Phosphorus 3.4 mg/dL (2.5-4.9); Potassium 4.3 mmol/L (3.5-5.1); Sodium Level 138 mmol/L (136-145)
== END | disposition home or self-care (01) ==
PROVIDERS: PCP Preventive Medicine Occupational Medicine; Referring Provider Internal Medicine Nephrology; Visit Provider Internal Medicine Nephrology
DX: N18.32 Chronic kidney disease, stage 3b (principal)
CPT/HCPCS: 36415; 80069

== ENCOUNTER → 2022-11-04 | Outpatient (CLI) | payer MEDICARE, SELFPAY ==
[2022-11-04 11:56] LABS: Albumin, Serum 3.7 g/dL (3.2-5.0); BUN 24 mg/dL (7-18); BUN/Creat Ratio 15.8 RATIO (10-20); Calcium,Total 8.9 mg/dL (8.5-10.1); Chloride 108 mmol/L (98-107); Creatinine, Serum 1.52 mg/dL (0.55-1.02); EST Glomerular Filtration Rate 36 mL/min (>60); Est Glom Filt Rate - Afr Amer 43 mL/min (>60); Glucose 132 mg/dL (74-106); Phosphorus 3.5 mg/dL (2.5-4.9); Potassium 4.5 mmol/L (3.5-5.1); Sodium Level 140 mmol/L (136-145)
== END | disposition home or self-care (01) ==
LOC: POLAB3 11:22
PROVIDERS: PCP Preventive Medicine Occupational Medicine; Visit Provider Internal Medicine Nephrology
DX: N18.32 Chronic kidney disease, stage 3b (principal)
CPT/HCPCS: 36415; 80069

== ENCOUNTER → 2023-04-13 | Outpatient (CLI) | payer MEDICARE, SELFPAY ==
--- OUTSIDE RECORDS SUMMARY | 2023-04-13 10:45 | XMS RPT_ITS | CCD ---
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 Name Role Phone CHRISSY MORALES DO Primary Care Physician [phone] Chrissy Morales Primary Care Provider [phone] CHRISSY MORALES DO Primary Care Unavailable CHRISSY MORALES DO Attending Unavailable CHRISSY MORALES DO Attending Unavailable CHRISSY MORALES DO Primary Care Unavailable CHRISSY MORALES DO Attending Unavailable CHRISSY MORALES DO Primary Care Unavailable Allergies Allergy Classification Reported Allergen(s) Allergy Type Date of Onset Reaction(s) Facility (3 sources) Codeine; Translations: [codeine] Drug Allergy 6 [facility] (1 source) Sulfonamides (Antibiotic) Drug Allergy 2 [facility] (1 source) Sulfamethoxazole / Trimethoprim; Translations: [sulfamethoxazole-tr imethoprim] Drug Allergy 2 Eruption of skin (disorder), Itching (finding) [facility] [place] Medications Current Medications Medication Drug Class(es) Dates Sig (Normalized) Sig (Original) albuterol MDI (90 mcg/inh) CFC free inhalation aerosol (1 source) Start: 08-06-2022 take 2 puff(s) by inhalation every four hours as needed for wheezing albuterol MDI (90 mcg/inh) CFC free inhalation aerosol 2 puff(s), Inhalation, q4h, PRN as needed for wheezing, # 1 EA, 0 Refill(s), Pharmacy: [id number], Acute bacterial bronchitis, 167.5, cm, 08/06/22 10:43:00 EDT, Height Start Date: 08/06/22 Status: Ordered Annette Low Dose 81 mg oral tablet (2 sources) Start: 05-28-2020 Annette Low Dose 81 mg oral tablet Dose : 81 mg = 1 tab(s), Oral, Daily, 0 Refill(s) Start Date: 05/28/20 Status: Ordered Centrum Silver oral tablet (2 sources) Start: 03-04-2020 take 1 tablet by mouth once daily Centrum Silver oral tablet Dose = 1 tab(s), Oral, qDay, # 30 tab(s), 0 Refill(s) Start Date: 03/04/20 Status: Ordered Cholecalciferol (2 sources) Vitamin D Start: 03-04-2020 Vitamin D (3) 45 units oral capsule qDay, 0 Refill(s) Start Date: 03/04/20 Status: Ordered Co Q-10 100 mg oral capsule (1 source) Start: 02-18-2021 Co Q-10 100 mg oral capsule Dose : 100 mg = 1 cap(s), Oral, Daily, 0 Refill(s) Start Date: 02/18/21 Status: Ordered DME MISCellaneous (1 source) Start: 11-20-2021 DME MISCellaneous See Instructions, Dispense 2 pairs of knee-high compression stockings, 20 to 30 mmHg pressure. Use as directed while out of bed., # 2 EA, 1 Refill(s), Chronic edema, 91.3 Start Date: 11/20/21 Status: Ordered escitalopram 5 mg oral tablet (2 sources) Serotonin Reuptake Inhibitor Start: 09-07-2022 escitalopram 5 mg oral tablet Dose : 5 mg = 1 tab(s), Oral, qDay, # 90 tab(s), 3 Refill(s), Pharmacy: [id number], Major depression Chronic anxiety, 167.5, cm, 08/06/22 10:43:00 EDT, Height, kg, 08/06/22 10:43:00 EDT, Dosing Weight Start Date: 09/07/22 Status: Ordered Completed/Discontinued Medications Medication Drug Class(es) Dates Sig (Normalized) Sig (Original) Aspirin (1 source) Platelet Aggregation Inhibitor, Nonsteroidal Anti-inflammatory Drug ASPIRIN (ASPIR-81 ORAL) Take by mouth. 0 Active Problems Problem Classification Problem Date Documented Date Episodic/Chronic Acute and unspecified renal failure (1 source) Chronic renal failure 08-09-2019 Chronic Anxiety disorders (2 sources) Chronic anxiety 10-25-2018 Chronic Chronic kidney disease (1 source) Chronic kidney disease stage 3A 11-20-2021 Chronic Disorders of lipid metabolism (1 source) Hyperlipidemia 02-03-2021 Chronic Esophageal disorders (2 sources) Gastroesophageal reflux disease without esophagitis 10-25-2018 Chronic Essential hypertension (2 sources) Essential hypertension 10-25-2018 Chronic Mood disorders (1 source) Moderate major depression, single episode 06-23-2021 Chronic Osteoarthritis (3 sources) Degenerative joint disease involving multiple joints; Translations: [Osteoarthritis of finger joint of right hand] 10-25-2018 Chronic Other connective tissue disease (1 source) History of total knee arthroplasty 02-19-2022 Chronic Other nervous system disorders (2 sources) H/O: migraine 10-25-2018 Episodic Other non-traumatic joint disorders (1 source) Knee pain 07-29-2021 Episodic Residual codes; unclassified (2 sources) Persistent insomnia 10-25-2018 Chronic Residual codes; unclassified (2 sources) Swelling - edema - symptom 07-18-2019 Episodic Thyroid disorders (3 sources) Hypothyroidism; Translations: [Simple goiter] Onset: 11-24-2006 10-25-2018 Chronic Viral infection (1 source) Viral disease; Translations: [Viral infection, unspecified] Episodic Results Test Name Value Interpretation Reference Range Facil ity Vital Signs Date Time Vital Sign Value Performing Clinician [place] geller 09-04-2021 09:13-0400 Body temperature 98.6 [degF] Tej Harrison APRN.CNP Work Phone: [facility] 09-04-2021 09:13-0400 Body weight 94.71 kg Tej Harrison APRN.CNP Work Phone: [facility] 09-04-2021 09:13-0400 Diastolic blood pressure 72 mm[Hg] Tej Harrison APRN.CNP Work Phone: [facility] 09-04-2021 09:13-0400 Heart rate 73 /min Tej Harrison APRN.CNP Work Phone: [facility] 09-04-2021 09:13-0400 Respiratory rate 18 /min Tej Harrison APRN.ACADEMIC COUNSELOR Work Phone: [facility] 09-04-2021 09:13-0400 SaO2% (BldA) [Mass fraction] 95 % Tej Harrison DIRECTOR NURSES' REGISTRY.ACADEMIC COUNSELOR Work Phone: [facility] 09-04-2021 09:13-0400 Systolic blood pressure 110 mm[Hg] Tej Harrison DIRECTOR NURSES' REGISTRY.ACADEMIC COUNSELOR Work Phone: [facility] Encounters Encounter Date Encounter Type Care Provider Facility Start: 02-04-2023 End: 02-05-2023 ambulatory CHRISSY MORALES DO Facility:B Start: 02-04-2023 End: 02-04-2023 Patient encounter procedure CHRISSY MORALES DO [facility] Start: 08-06-2022 End: 08-07-2022 ambulatory CHRISSY DAYDAY DO Facility:[facility] Start: 02-12-2022 End: 02-13-2022 ambulatory CHRISSY DAYDAY DO Facility:[facility] Start: 09-04-2021 End: 09-04-2021 Patient encounter procedure Tej Harrison DIRECTOR NURSES' REGISTRY.ACADEMIC COUNSELOR Work Phone: [facility] Procedures Date Procedure Procedure Detail Performing Clinician Start: 09-11-2020 Mammography Tej quarles DIRECTOR NURSES' REGISTRY.ACADEMIC COUNSELOR Work Phone: Arthroplasty of knee LAURI KINNEY MD Plan of Treatment Date Care Activity Detail Author Start: 10-30-2021 Influenza vaccination INFLUENZA (#1) [facility] Start: 09-11-2021 Mammography MAMMOGRAM [facility] Start: 05-17-2021 COVID-19 VACCINE (4 - Booster for Moderna series) COVID-19 VACCINE (4 - Booster for Moderna series) [facility] Start: 03-01-2021 ADVANCE DIRECTIVE DISCUSSION ADVANCE DIRECTIVE DISCUSSION [facility] Start: 09-20-2015 BONE DENSITY BONE DENSITY [facility] Start: 09-20-2015 PNEUMOCOCCAL: 65+ (1 - PCV) PNEUMOCOCCAL: 65+ (1 - PCV) [facility] Start: 2000 SHINGRIX VACCINE (1 of 2) SHINGRIX VACCINE (1 of 2) [facility] Start: 09-20-1995 COLOGUARD (FIT-DNA) COLOGUARD (FIT-DNA) [facility] Start: 09-20-1995 Colonoscopy COLONOSCOPY [facility] Start: 09-20-1995 COLORECTAL CANCER SCREENING COLORECTAL CANCER SCREENING [facility] Start: 09-20-[address] COLONOGRAPHY [facility] Start: 09-20-1995 DIABETES SCREEN DIABETES SCREEN [facility] Start: 09-20-1995 FECAL OCCULT BLOOD FECAL OCCULT BLOOD [facility] Start: 09-20-1995 LIPID SCREEN LIPID SCREEN [facility] Start: 09-20-1995 SIGMOIDOSCOPY SIGMOIDOSCOPY [facility] Start: 1969 Urine microalbumin profile DTAP,TDAP,TD (1 - Tdap) [facility] Start: 1968 HEPATITIS C SCREENING HEPATITIS C SCREENING [facility] Start: 1962 Adult depression screening assessment DEPRESSION SCREENING [facility] Influenza virus A an d B RNA and SARS-CoV-2 (COVID-19) N gene panel - Respiratory specimen by QI with probe detection COVID WITH FLUA+B, ROUTINE Microbiology Routine Viral illness Ordered: 09/04/2021 [facility] Work Phone: Immunizations Immunization Date Immunization Notes Care Provider Fa cility 05-13-2020 COVID-19, mRNA, LNP- S, PF, 100 mcg/ 0.5 mL dose; Translations: [Moderna COVID-19 Vaccine] LAURI KINNEY MD [facility] 04-15-2020 COVID-19, mRNA, LNP- S, PF, 100 mcg/ 0.5 mL dose; Translations: [Moderna COVID-19 Vaccine] LAURI KINNEY MD [facility] Payers Date Payer Category Payer Unknown [id number] 2021 Unknown AN[employer] S AND BLUE [employer]IELD [employer] HMO [id number] 2021-Present [phone] [address] [place] [address] [facility] [id number] 1950 Unknown [id number] 1950 Unknown [id number] 1950 Unknown [id number] Social History Date Type Detail Facility Start: 10-25-2018 Never smoked t obacco (finding) [facility] Sex Assigned At [facility] Tobacco smoking stat [facility] Ex-smoker [facility] Work Phone: Start: 09-04-2021 Alcohol intake Current drinke r of alcohol (finding) [facility] Start: 1950 Sex Assigned At Not on file [facility] Start: 08-25-2021 End: 09-04-2021 Exposure to SARS-CoV-2 (event) Not sure [facility] Work Phone: Influenza virus A and B RNA and SARS-CoV-2 (COVID-19) N gene panel QI+probe (Resp) 09-04-2021 Note Date & Type Note Facility 09-04-2021 Influenza virus A and B RNA and SARS-CoV-2 (COVID-19) N gene panel QI+probe (Resp) COVID 19 RESULT: SARS-CoV-2 (Agent of COVID-19) Detected by RT-PCR or equivalent method. mir [id number] [employer] (DANIELA)_EUA This test was developed and its performance characteristics determined by [facility]'s [facility] [place]. This test has been authorized by FDA under an Emergency Use Authorization (EUA). This test has been validated in accordance with the FDA's Guidance Document Policy for Diagnostics Testing in Laboratories Certified to Perform High Complexity Testing under CLIA prior to Emergency use Authorization for Coronavirus Disease 2019 during the Public Health Emergency issued on April 29, 2019. Test performed by [facility], [facility] [place], [address], [place], [place] [address]. INFLUENZA A PCR: Negative for Influenza A by RT-PCR INFLUENZA B PCR: Negative for Influenza B by RT-PCR [facility] Progress note 09-04-2021 Note Date & Type Note Facility 09-04-2021 Note HNO ID: [id number] Author: Tej Harrison APRN.ACADEMIC COUNSELOR Service: ? Author Type: Nurse Practitioner Type: Progress Notes Filed: 09/04/2021 10:06 AM Note Text: Subjective HPI Nontoxic-appearing female presents urgent care chief complaint cough body aches chills scratchy throat fatigue and fever. Duration of symptoms 2 days. Associated symptoms listed above. States sore throat has improved. Denies any pain currently. States most bothersome symptom today is fatigue headache body aches and cough. States has similar signs and symptoms. No OTC medication use. Denies any known sick contacts. No recent COVID-19 exposure or diagnosis. Is vaccinated. Denies any high fever productive cough chest pain shortness of breath pleuritic pain hemoptysis vomiting abdominal pain or change in bowel or bladder habits. Past medical history prescription medication use allergies reviewed. .Patient presents with: Cough: cough, fever, bodyaches and ST x 2 days PAST MEDICAL HISTORY Diagnosis Date - NEGATIVE MEDICAL HISTORY PAST SURGICAL HISTORY Procedure Laterality Date - LIG/TRNSXJ FLP TUBE ABDL/VAG APPR UNI/BI - TOTAL KNEE REPLACEMENT Right 2013 ALLERGIES Codeine and Sulfa (Sulfonamide Antibiotics) MEDICATIONS escitalopram oxalate (LEXAPRO) 5 mg tablet pravastatin (PRAVACHOL) 40 mg tablet Take 40 mg by mouth daily at bedtime. UBIQUINONE ORAL Take by mouth. carvedilol (COREG) 6.25 mg tablet Take 6.25 mg by mouth twice daily. valsartan (DIOVAN) 80 mg tablet folic acid/multivit-min/lutein (CENTRUM SILVER ORAL) Take by mouth. VITAMIN B COMPLEX ORAL Take by mouth. cholecalciferol, vitamin D3, (VITAMIN D3 ORAL) Take by mouth. LORazepam (ATIVAN) 0.5 mg tab Take by mouth three times daily as needed. ASPIRIN (ASPIR-81 ORAL) Take by mouth. levothyroxine 100 mcg tablet 7 AND 1/2 pills per week NORTRIPTYLINE 25 MG CAP Take one(1) tablet daily at bedtime. OMEPRAZOLE 20 MG CAP, DELAYED RELEASE Take one(1) tablet daily at bedtime. clotrimazole-betamethasone (LOTRISONE) cream Apply to affected area twice daily. for 2 weeks nabumetone 500 mg ORAL tablet Take 1 tablet by mouth three times daily as needed. TRIAMTERENE-HYDROCHLOROTHIAZIDE 37.5 MG-25 MG CAP Take 1/2 tablet daily FAMILY HISTORY Problem Relation Age of Onset - Cancer Father colon - Cancer Maternal Grandmother uterine - Cancer Sister thyroid Social History Tobacco Use - Smoking status: Former Smoker - Smokeless tobacco: Never Used - Tobacco comment: Quit approx 1980 Substance Use Topics - Alcohol use: Yes - Drug use: No BP 110/72 Pulse 73 Temp 37 ?C (98.6 ?F) (Tympanic) Resp 18 Wt 94.7 kg (208 lb 12.8 oz) SpO2 95% BMI 33.96 kg/m? Review of Systems Constitutional: Positive for chills, fever and malaise/fatigue. HENT: Positive for congestion. Negative for ear discharge, ear pain, sinus pain and sore throat. Eyes: Negative for blurred vision, pain, discharge and redness. Respiratory: Positive for cough. Negative for hemoptysis, sputum production, shortness of breath, wheezing and stridor. Cardiovascular: Negative for chest pain. Gastrointestinal: Positive for nausea. Negative for abdominal pain, diarrhea and vomiting. Musculoskeletal: Negative for myalgias. Skin: Negative for itching and rash. Neurological: Positive for headaches. Negative for dizziness. Objective Physical Exam Constitutional: General: She is not in acute distress. Appearance: She is not diaphoretic. HENT: Head: Normocephalic. Nose: Congestion present. Eyes: Conjunctiva/sclera: Conjunctivae normal. Pupils: Pupils are equal, round, and reactive to light. Cardiovascular: Rate and Rhythm: Normal rate and regular rhythm. Heart sounds: Normal heart sounds. Pulmonary: Effort: Pulmonary effort is normal. No tachypnea, accessory muscle usage or respiratory distress. Breath sounds: Normal breath sounds. No stridor. No wheezing, rhonchi or rales. Abdominal: Palpations: Abdomen is soft. Tenderness: There is no abdominal tenderness. Musculoskeletal: Cervical back: Normal range of motion and neck supple. No rigidity or tenderness. Lymphadenopathy: Cervical: No cervical adenopathy. Skin: General: Skin is warm and dry. Neurological: Mental Status: She is alert and oriented to person, place, and time. ASSESSMENT/PLAN: 1. Viral illness - ICD9: 079.99, ICD10: B34.9 - COVID WITH FLUA+B, ROUTINE Diagnosed with viral illness. Vital signs within normal limits nontoxic-appearing. Suspicious of COVID-19 at this point. Test ordered results pending alternative diagnosis discussed home quarantining recommended. Patient was educated on supportive therapies. Patient will follow up with primary care provider as needed. Patient was instructed to immediately proceed to emergency room for any new, worsening, or symptoms lasting longer than anticipated. The patient's clinical presentation is otherwise unre (more content not included)... [facility] Instructions 09-04-2021 Patient Instructions Note Date & Type Note Facility 09-04-2021 Instructions Tej Harrison APRN.[facility] - 09/04/2021 9:27 AM EDT How to Manage Common Symptoms Associated with COVID for Adults Fever- Fever is a temperature over 100.4 F and can occur when the body is fighting an infection. To help treat a fever: Drink plenty of fluids and stay well hydrated. Eat small amounts of easy to digest food. Rest. Your body needs rest to recover, but getting up and moving around the house frequently is a good idea. You should try to continue doing your normal daily activities (bathing, toileting, grooming, cooking), though you will probably feel tired, and need to rest often. Avoid any heavy activity or exercise, as this will increase your body temperature. Dress in light clothing and stay covered in a light sheet. Keep the room temperature cool. Take a slightly warm (not cold or cool) bath, or apply damp washcloths to the forehead and wrists. Cough- Cough is a common symptom associated with COVID and can be bothersome. To help treat a cough: Stay well hydrated. Try warm water or tea with lemon and/or honey to help soothe the cough. Use a humidifier to add moisture to the air. Try a product with menthol, like a cough drop or a rub for your chest such as Vicks, which can help reduce cough. Try cough drops. Avoid smoking and other strong odors or perfumes. Try breathing exercises to keep your lungs open and clear. Take a big deep breath through your nose and hold for 5 seconds before slowly releasing. Repeat frequently, while you are awake. Congestion- Runny nose or nasal congestion can occur with COVID. Treatment can help relieve symptoms: Try OTC nasal saline spray, or nasal saline rinse to relieve mucus congestion. Nasal strips can help keep nasal passages open, to increase airflow. Elevating your head with an extra pillow in bed can help reduce congestion. Using a humidifier can increase moisture in the air, and make breathing easier. Sore Throat- Another common symptom with COVID, can be managed at home by: Stay well hydrated. Gargle with salt water mix teaspoon salt with 1 cup of warm water and gargle. This helps to loosen mucus in the back of the throat and may reduce discomfort. Try ice chips, popsicles or lozenges to soothe the throat. Nausea/Vomiting/Diarrhea- These are common symptoms, and staying hydrated is most important. If you are nauseous or vomiting, start with small sips of water every 10-15 minutes and increase as tolerated. You can try sucking an ice cube too. If tolerating, you can try pedialyte or Gatorade, or flat sprite or abelardo-cuco. Start slowly and increase as you are able to. Instead of meals, try smaller, more frequent snacks. Try eating bland foods like crackers, toast, rice, and applesauce. Avoid spicy, greasy or fried foods and dairy containing foods. Even if you aren't feeling hungry due to lack of smell or taste, it is important to try to take in some food when you are able. After drinking and eating, rest in an upright position for up to two hours as needed to help decrease nauseous feelings. Try closing your eyes, avoid moving and watching TV. Avoid strong odors that can make you feel more nauseated. When to seek emergency medical attention Look for emergency warning signs for COVID-19. If having any of these symptoms, seek emergency medical care immediately: Trouble breathing Persistent pain or pressure in the chest New confusion Inability to wake or stay awake Bluish lips or face *This list is not all possible symptoms. Please call your medical provider for any other symptoms that are severe or concerning to you. documented in this encounter [facility] History of Present illness Narrative 09-04-2021 Tej Harrison APRN.CNP - 09/04/2021 9:23 AM EDT Note Date & Type Note Facility 09-04-2021 History of Presen t illness Narrative Subjective HPI Nontoxic-appearing female presents urgent care chief complaint cough body aches chills scratchy throat fatigue and fever. Duration of symptoms 2 days. Associated symptoms listed above. States sore throat has improved. Denies any pain currently. States most bothersome symptom today is fatigue headache body aches and cough. States has similar signs and symptoms. No OTC medication use. Denies any known sick contacts. No recent COVID-19 exposure or diagnosis. Is vaccinated. Denies any high fever productive cough chest pain shortness of breath pleuritic pain hemoptysis vomiting abdominal pain or change in bowel or bladder habits. Past medical history prescription medication use allergies reviewed. .Patient presents with: Cough: cough, fever, bodyaches and ST x 2 days PAST MEDICAL HISTORY Diagnosis Date NEGATIVE MEDICAL HISTORY PAST SURGICAL HISTORY Procedure Laterality Date LIG/TRNSXJ FLP TUBE ABDL/VAG APPR UNI/BI TOTAL KNEE REPLACEMENT Right 2013 ALLERGIES Codeine and Sulfa (Sulfonamide Antibiotics) MEDICATIONS escitalopram oxalate (LEXAPRO) 5 mg tablet pravastatin (PRAVACHOL) 40 mg tablet Take 40 mg by mouth daily at bedtime. UBIQUINONE ORAL Take by mouth. carvedilol (COREG) 6.25 mg tablet Take 6.25 mg by mouth twice daily. valsartan (DIOVAN) 80 mg tablet folic acid/multivit-min/lutein (CENTRUM SILVER ORAL) Take by mouth. VITAMIN B COMPLEX ORAL Take by mouth. cholecalciferol, vitamin D3, (VITAMIN D3 ORAL) Take by mouth. LORazepam (ATIVAN) 0.5 mg tab Take by mouth three times daily as needed. ASPIRIN (ASPIR-81 ORAL) Take by mouth. levothyroxine 100 mcg tablet 7 & 1/2 pills per week NORTRIPTYLINE 25 MG CAP Take one(1) tablet daily at bedtime. OMEPRAZOLE 20 MG CAP, DELAYED RELEASE Take one(1) tablet daily at bedtime. clotrimazole-betamethasone (LOTRISONE) cream Apply to affected area twice daily. for 2 weeks nabumetone 500 mg ORAL tablet Take 1 tablet by mouth three times daily as needed. TRIAMTERENE-HYDROCHLOROTHIAZIDE 37.5 MG-25 MG CAP Take 1/2 tablet daily FAMILY HISTORY Problem Relation Age of Onset Cancer Father colon Cancer Maternal Grandmother uterine Cancer Sister thyroid Social History Tobacco Use Smoking status: Former Smoker Smokeless tobacco: Never Used Tobacco comment: Quit approx 1980 Substance Use Topics Alcohol use: Yes Drug use: No BP 110/72 Pulse 73 Temp 37 C (98.6 F) (Tympanic) Resp 18 Wt 94.7 kg (208 lb 12.8 oz) SpO2 95% BMI 33.96 kg/m Review of Systems Constitutional: Positive for chills, fever and malaise/fatigue. HENT: Positive for congestion. Negative for ear discharge, ear pain, sinus pain and sore throat. Eyes: Negative for blurred vision, pain, discharge and redness. Respiratory: Positive for cough. Negative for hemoptysis, sputum production, shortness of breath, wheezing and stridor. Cardiovascular: Negative for chest pain. Gastrointestinal: Positive for nausea. Negative for abdominal pain, diarrhea and vomiting. Musculoskeletal: Negative for myalgias. Skin: Negative for itching and rash. Neurological: Positive for headaches. Negative for dizziness. Objective Physical Exam Constitutional: General: She is not in acute distress. Appearance: She is not diaphoretic. HENT: Head: Normocephalic. Nose: Congestion present. Eyes: Conjunctiva/sclera: Conjunctivae normal. Pupils: Pupils are equal, round, and reactive to light. Cardiovascular: Rate and Rhythm: Normal rate and regular rhythm. Heart sounds: Normal heart sounds. Pulmonary: Effort: Pulmonary effort is normal. No tachypnea, accessory muscle usage or respiratory distress. Breath sounds: Normal breath sounds. No stridor. No wheezing, rhonchi or rales. Abdominal: Palpations: Abdomen is soft. Tenderness: There is no abdominal tenderness. Musculoskeletal: Cervical back: Normal range of motion and neck supple. No rigidity or tenderness. Lymphadenopathy: Cervical: No cervical adenopathy. Skin: General: Skin is warm and dry. Neurological: Mental Status: She is alert and oriented to person, place, and time. ASSESSMENT/PLAN: 1. Viral illness - ICD9: 079.99, ICD10: B34.9 - COVID WITH FLUA+B, ROUTINE Diagnosed with viral illness. Vital signs within normal limits nontoxic-appearing. Suspicious of COVID-19 at this point. Test ordered results pending alternative diagnosis discussed home quarantining recommended. Patient was educated on supportive therapies. Patient will follow up with primary care provider as needed. Patient was instructed to immediately proceed to emergency room for any new, worsening, or symptoms lasting longer than anticipated. The patient's clinical presentation is otherwise unremarkable at this time. Based on exam and clinical finding, the patient is stable for discharge. Plan of care was discussed with patient. Patient verbalizes understanding and agrees to plan of care. This note was generated using [employer] software. It may contain errors in wording, punctuation, or spelling. Tej Harrison APRN.CAM documented in this encounter [facility] Evaluation + Plan note Note Date & Type Note Facility Evaluation + Plan note Future Appointments Appointment Date:02/03/2021 03:00:00 PM Scheduled Provider:CHRISSY MORALES DO Location:[facility] Appointment Type:[facility] Evaluation + Plan note Note Date & Type Note Facility Evaluation + Plan note Future Appointments Appointment Date:08/05/2023 11:00:00 AM Scheduled Provider:CHRISSY MORALES DO Location:[facility] Appointment Type:[facility] Evaluation note Note Date & Type Note Facility documented in this encounter [facility] Hospital course Narrative Note Date & Type Note Facility Hospital course Narrative No data available for this section [facility] Hospital Discharge instructions Note Date & Type Note Facility Hospital Discharge instructions No data available for this section [facility] Progress note Note Date & Type Note Facility Progress note No data available for this section [facility] Summary Purpose Family History No Family History Records FoundNo Family History Records Found No data available for this section No Family History Records Found Advance Directives No Advanced Directives Records FoundNo Advanced Directives Records FoundNo Advanced Directives Records Found Additional Source Comments INFORMATION SOURCE (unrecogn ized section and content) DATE CREATED AUTHOR AUTHOR'S ORGANIZ ATION 09/04/2021 [facility] DATE CREATED AUTHOR AUTHOR'S ORGANIZ ATION 02/06/2023 [facility] ([place] Source Comments (unrecognize d section and content) In the event this informatio n is protected by the Federal Confidentiality of Alcohol and Drug Abuse Patient Records regulations: The Federal rules restrict any use of the information to criminally investigate or prosecute any alcohol or drug abuse patient.[facility] Reason for Visit (unrecogniz ed section and content) Care Teams (unrecognized sec tion and content) FOR RECORDS PERTAINING TO PATIENTS WHO ARE OR HAVE BEEN ENROLLED IN A CHEMICAL DEPENDENCY/SUBSTANCEABUSE PROGRAM, SOME INFORMATION MAY BE OMITTED. This clinical summary was aggregated from multiple sources. Caution should be exercised in using it in the provision of clinical care. This summary normalizes information from multiple sources, and as a consequence, information in this document may materially change the coding, format and clinical context of patient data. In addition, data may be omitted in some cases. CLINICAL DECISIONS SHOULD BE BASED ON THE PRIMARY CLINICAL RECORDS. [employer] [facility]. provides no warranty or guarantee of the accuracy or completeness of information in this document.
[2023-04-13 11:23] LABS: Albumin, Serum 3.5 g/dL (3.2-5.0); BUN 23 mg/dL (7-18); BUN/Creat Ratio 15.5 RATIO (10-20); Calcium,Total 9.1 mg/dL (8.5-10.1); Chloride 107 mmol/L (98-107); Creatinine, Serum 1.48 mg/dL (0.55-1.02); EST Glomerular Filtration Rate 37 mL/min (>60); Est Glom Filt Rate - Afr Amer 45 mL/min (>60); Glucose 117 mg/dL (74-106); Potassium 4.3 mmol/L (3.5-5.1); Sodium Level 140 mmol/L (136-145)
[2023-04-13 11:26] LABS: Protein, Urine (Random) 10.6 mg/dL (<11.9); Protein:Creat Ratio 94 mg/g CRE (0-200)
== END | disposition home or self-care (01) ==
LOC: POLAB3 10:06
PROVIDERS: PCP Preventive Medicine Occupational Medicine; Visit Provider Internal Medicine Nephrology
DX: N18.32 Chronic kidney disease, stage 3b (principal)
CPT/HCPCS: 36415; 80069; 82570; 84156

== ENCOUNTER → 2023-08-03 | Outpatient (CLI) | payer MEDICARE, SELFPAY ==
--- NOTE | 2023-08-03 08:14 | BI_ITS ---
MAMMOGRAPHY - BILATERAL SCREENING REASON FOR EXAM: Female, 72 years old. Routine annual screening examination. PERTINENT HISTORY: Non-contributory. TECHNIQUE: Digital bilateral breast adryan (3D mammographic acquisition) in the CC and MLO projections. 2-D mediolateral oblique (MLO) and craniocaudad (CC) views of both breasts were obtained. CAD: Full Field Digital Mammography with Computer Added Detection was performed. COMPARISON: Comparison is made with prior study dated September 11, 2020. FINDINGS: Breast Composition: The breasts are heterogeneously dense, which may obscure small masses. There are no dominant masses or suspicious calcifications. Stable bilateral fat containing axillary lymph nodes. No other significant abnormalities are identified. There has been no significant change since the prior study. BI/SCRN MAMM (CAD)W/ADRYAN BILAT IMPRESSION: Stable bilateral screening mammogram. Yearly follow-up mammogram recommended. (A) ASSESSMENT CATEGORY: BIRADS Category 2: Benign. A letter regarding these results will be sent to the patient by the facility within 30 days. Approximately 10% of breast cancers are not detected by mammography. A normal mammogram should not delay biopsy of a clinically suspicious abnormality. [id number] Electronically Signed: Jeremiah Montenegro MD at 9:34 EDT ,
--- NOTE | 2023-08-03 08:19 | BD_ITS ---
STUDY: DUAL ENERGY X-RAY ABSORPTIOMETRY / DXA REASON FOR EXAM: Female, 72 years old. [id number] TECHNIQUE: Bone Mineral Density (BMD) measurements of lumbar spine and bilateral hips were obtained. COMPARISON: None. FINDINGS: Lumbar Spine (L1-L4): g/cm2 (1.092) / T-score (0.4) / Z-score (2.7) Findings are suggestive of normal bone density with a low fracture risk. Left Femur Total: g/cm2 (0.833) / T-score (-0.5) / Z-score (1.2) Left Femoral Neck: g/cm2 (0.629) / T-score (-2.0) / Z-score (0.0) Right Femur Total: g/cm2 (0.855) / T-score (-0.7) / Z-score (0.9) Right Femoral Neck: g/cm2 (0.701) / T-score (-1.3) / Z-score (0.6) BD/Dexa Bone Density Study IMPRESSION: The patient is considered osteopenic as outlined below according to World Agustin Organization (WHO) criteria with a moderate fracture risk. Reference Information: The T-score is the number of standard deviations above or below the standard which is normal for young adults at their peak bone mineral density. The World Health Organization (WHO) interprets the T-scores as follows: Above -1 Normal bone density Between -1 and -2.5 Osteopenia Equal to / or below -2.5 Osteoporosis As a practical clinical guideline, osteopenia may be graded as follows: Mild -1 through -1.5 Moderate -1.6 through -2.0 Severe -2.1 through -2.4 The Z-score is the number of standard deviations above or below age-matched controls. A Z-score of less than -1.5 would be considered abnormal. References: 1. NIH Osteoporosis and Related Bone Diseases www osteo.org 2. International Society for Clinical Densitometry www iscd.org 3. National Osteoporosis Foundation www nof.org Electronically Signed: Jeremiah Montenegro MD at 9:23 EDT ,
== END | disposition home or self-care (01) ==
PROVIDERS: PCP Preventive Medicine Occupational Medicine; Referring Provider Preventive Medicine Occupational Medicine; Visit Provider Preventive Medicine Occupational Medicine
DX: Z12.31 Encounter for screening mammogram for malignant neoplasm of breast (principal); Z78.0 Asymptomatic menopausal state
CPT/HCPCS: 77063; 77067; 77080

== ENCOUNTER 2023-08-17 08:18 | Day surgery (SDC) | payer MEDICARE, SELFPAY ==
[2023-08-17] VITALS (8 sets, daily range): BP systolic 94–138; BP diastolic 69–76; PULSE 68–70; RESP 16; TEMP 36.1–36.5; O2SAT 94–97; BMI 33.2
--- NOTE | 2023-08-17 | GASB_PTH ---
PATIENT: ARIEL LEBLANC LOC: EN U#:[id number] AGE/SX: 72/F ROOM: RE08/17/[address]: Dr. Nayan Arita MD : 1950 BED: DIS: 08/17/2023 SPEC #: [id number] RECD: 08/17/23 12:01 STATUS: DHRUV DWAINE #: [id number] KARINA: 08/17/23 00:[address]: Nayan Arita DEPT: SURGICAL PATHOLOGY RECD BY: Steve Fuentes ENTERED: 08/17/23 12:02 SP TYPE: Gastric Bx OT DR: Dr. Bienvenido Morales DO Tissues: A - Duodenum, NOS B - Gastric mucous membrane Procedures: Special Stain Group I Surgery Specimen Level IV Alcian Blue/PAS (control) HEADER OPERATION: Colonoscopy, EGD with PH probe, biopsy PRE-OP DIAGNOSIS: Family history of colon cancer, GERD TISSUE SUBMITTED: A- Duodenal bulb biopsy, B- Gastroesophageal junction biopsy MICROSCOPIC DIAGNOSIS A. Duodenal bulb, biopsy: Mild non-specific chronic inflammation with focal acute inflammation. B. Gastroesophageal junction, biopsy: Acute inflammation. Fibrinoid material suggestive of ulcer. No evidence of goblet cell metaplasia. See comment. / 08/18/2023 COMMENT B. Alcian blue/PAS stain with matched control supports the above diagnosis. MICROSCOPIC DESCRIPTION Slides are reviewed. GROSS DESCRIPTION A. Received in fixative is one container labeled with the patient's name and designated Duodenal bulb biopsy. The specimen consists of multiple irregular fragments of light mckeon soft tissue that in aggregate measure 0.5 x 0.2 x 0.1 cm. The specimen is totally submitted in one cassette. B. Received in fixative is one container labeled with the patient's name and designated GE junction biopsy. The specimen consists of multiple irregular fragments of light mckeon soft tissue that in aggregate measure 1.0 x 0.2 x 0.1 cm. The specimen is totally submitted in one cassette. / 08/17/2023 TC:2 CPT:[id number]
[2023-08-17] MEDS: Lactated Ringers 1,000 ML 15 ML IV (08:48)
--- NOTE | 2023-08-17 09:09 | PCM.PRE.AN2 ---
ASA Classification* ASA Classification ASA Classification: 2 Assessment & Plan Anesthesia* Anesthesia Assessment Anesthesia Assessment: Discussed sedation and/or anesthesia options, risks, benefits, and alternatives with patient/parents/legal guardian/POA. Questions invited. The patient/parents/legal guardian/POA seems to understand and agrees to proceed with anesthesia plan. Reviewed the physical assessment, medical history, allergy history and patient home medications list prior to surgery/procedure/anesthetic and documented any changes. Performed airway and anesthesia risk assessments. Anesthesia Type Anesthesia Type: MAC (had nausea from prep pre op. see, other PAT sheet) Pre-Assessment Diagnosis/Proposed Procedure Planned Operative Procedure(s): EGD/CSCOPE Anesthesia History Anesthesia History - integration solution architect: Anesthesia History - integration solution architect Hx Hospitalization No 08/11/23 12:04 Any Problems With Anesthesia No 08/11/23 12:04 Cholinesterase deficiency No 08/11/23 12:04 You/Your Family Experience No 08/11/23 12:04 fever (hyperthermia) with Relationship Recent Exposure to Contagious No 08/17/23 08:39 Disease Does patient have nerve No 08/11/23 12:04 stimulator Patient instructed to have device shut off --Does patient have Pacemaker No 08/17/23 08:39 or ICD? When Was Last Pacemaker Check QUESTION #4 FULL TEXT: You/Your Family Experience fever (hyperthermia) with Anesthesia Last Oral Intake Last Oral intake: Last Oral Intake NPO since 00:00 08/17/23 08:39 Meds taken in AM with sips of Yes 08/17/23 08:39 water? Meds patient instructed to take am of surgery PONV PONV - integration solution architect: PONV - integration solution architect Female Yes 08/11/23 12:04 HX of Motion Sickness Yes 08/11/23 12:04 HX of N/V After Surgery No 08/11/23 12:04 Non-Smoker Yes 08/11/23 12:04 Duration of Surgery greater No 08/11/23 12:04 than 60 minutes Number of Risk Factors 3 08/11/23 12:04 PONV Score Moderate Risk 08/11/23 12:04 Height & Weight Height & Weight: Anesthesia: Height & Weight Height 5 ft 6 in 08/17/23 08:39 Weight: 93.44 kg 08/17/23 08:39 Body Mass Index (BMI) 33.2 08/17/23 08:39 Respiratory Assessment Respiratory Assessment - integration solution architect: Respiratory Tract Infection Hx - integration solution architect Hx Respiratory Tract Infection No 08/11/23 12:04 STOP Sleep Apnea STOP Sleep Apnea - integration solution architect: STOP Sleep Apnea - integration solution architect Hx Hypertension Yes: CONTROLLED WITH MED 08/11/23 12:04 Hx Sleep Apnea No 08/11/23 12:04 CPAP No 09/29/21 09:34 BIPAP No 05/19/18 11:58 Do you snore loudly (louder No 08/11/23 12:04 than talking or can be heard Do you often feel tired/ No 08/11/23 12:04 fatigued/ sleepy during daytime? Has anyone observed you stop No 08/11/23 12:04 breathing during sleep? STOP Results Negative 08/11/23 12:04 QUESTION #5 FULL TEXT : Do you snore loudly (louder than talking or can be heard through closed doors)? Tobacco Use History Tobacco Use History - integration solution architect: Tobacco Use History - integration solution architect Tobacco Use Smoking Status Former smoker 08/11/23 12:04 Hx Tobacco Use No 08/11/23 12:04 Years Smoking Packs Smoked per Day Smoking Cessation Date was No - quit smoking greater 08/11/23 12:04 within the last 15 years than 15 years ago Hx Smoking Cessation Date 03/01/79 08/11/23 12:04 Hx Smoking Cessation No 08/11/23 12:04 Counseling Hematologic Medial History Hematologic Hx - integration solution architect: Hematologic Medical Hx - laboratory phlebotomist Hx of Blood Transfusion No 08/11/23 12:04 Hx of Transfusion in last 3 No 08/11/23 12:04 Months Date of Last Transfusion (if within last 3 months) Ever experience any problems No 08/11/23 12:04 with transfusion(s)? Specify any problems Hx of Preganancy in last 3 No 08/11/23 12:04 Months Nurse Filling Out Transfusion DSCHRIBER 08/11/23 12:04 & Questions: Date: 08/11/23 08/11/23 12:04 Time: 12:06 08/11/23 12:04 Patient unable to answer at this time (ie. confused, unrespo /Reproduction History /Reproductive History - integration solution architect: /Reproductive Hx- integration solution architect Hx Now No 08/11/23 12:04 Gestational Age (in weeks): EDC: Hx Hx Para Hx Section SAB No 08/11/23 12:04 Active Medications Active Medications: Current Medications Generic Name Dose Route Start Last Admin Trade Name Freq PRN Reason Stop Dose Admin Lactated Ringer's 1,000 mls @ 15 mls/hr 08/17/23 08:30 08/17/23 08:48 IV 15 mls/hr .Q48H SANDIP Administration Anesthesia Focused Assessment* Temperature: 97.7 F Pulse Rate: 68 Blood Pressure: 138/76 Respiratory Rate: 16 Pulse Ox: 97 Airway Assessment Mouth opens: >3 cm Mallampati Score: II Focused Labs Anesthesia Preop lab: CBC WBC 7.4 K/mm3 (4.4-11.0) 09/18/21 15:30 RBC 3.98 M/mm3 (4.2-5.4) L 09/18/21 15:30 Hgb 12.8 g/dL (12.0-15.0) 09/18/21 15:30 Hct 38.2 % (37-47) 09/18/21 15:30 Plt Count 289 K/mm3 (150-450) 09/18/21 15:30 CHEMISTRY Potassium 4.3 mmol/L (3.5-5.1) 04/13/23 10:08 Sodium 140 mmol/L (136-145) 04/13/23 10:08 Magnesium 1.9 mg/dL (1.6-2.6) 09/18/21 15:30 Phosphorus 3.0 mg/dL (2.5-4.9) 04/13/23 10:08 BUN 23 mg/dL (7-18) H 04/13/23 10:08 Creatinine 1.48 mg/dL (0.55-1.02) H 04/13/23 10:08 Glucose 117 mg/dL (74-106) H 04/13/23 10:08 TSH 0.91 uIU/mL (0.358-3.74) 09/18/21 15:30 COAG Review of Systems (Anesthesia) ROS Narrative System reviewed and no additional complaints, except as documented. [facility] Medical History Alcohol use Acute otitis externa of left ear Wears glasses Wears dentures Anxiety Thyroid disease Arthritis Bladder disease History of renal disease High cholesterol Back pain Migraine headache Gastric reflux Shortness of breath on exertion Former smoker Leg cramps History of edema Hypertension Home Medications ?Medication ?Instructions ?Recorded ?Last Taken ?Type cholecalciferol (vitamin D3) 25 1,000 unit PO DAILY SUPPLEMENT 01/22/14 08/16/23 History mcg (1,000 unit) tablet (Vitamin D3) iielulvx-doy-xdijr acid 0.4 1 ea PO DAILY SUPPLEMENT 01/22/14 08/16/23 History mg-lycopene 300 mcg-lutein 250 mcg tablet (Centrum Silver) nortriptyline 25 mg capsule 25 mg PO QHS SLEEP 01/22/14 08/16/23 History omeprazole 20 mg capsule,delayed 40 mg PO BID GERD 01/22/14 08/09/23 History release levothyroxine 100 mcg tablet 100 mcg PO MOTUWETHFRSA@0600 02/13/14 08/16/23 History THYROID levothyroxine 100 mcg tablet 150 mcg PO AVILES@0600 THYROID 02/13/14 Unknown History (Levoxyl) aspirin 81 mg tablet,delayed 81 mg PO QHS HEART HEALTH 05/19/18 08/09/23 History release (Aspir-) lorazepam 0.5 mg tablet 0.25 mg PO BID ANXIETY 05/19/18 08/16/23 History Muscle Cramp Pain Reliever 1 tab PO/SL DAILY SUPPLEMENT 09/15/21 Unknown History carvedilol 12.5 mg tablet 12.5 mg PO BID BP 09/15/21 08/17/23 History coenzyme Q10 100 mg capsule 100 mg PO QHS SUPPLEMENT 09/15/21 08/16/23 History (CoQ-10) escitalopram oxalate 5 mg tablet 5 mg PO DAILY 09/15/21 08/16/23 History (Lexapro) pravastatin 40 mg tablet 40 mg PO QHS CHOLESTEROL 09/15/21 08/16/23 History vitamin B complex 1 cap PO DAILY SUPPLEMENT 09/15/21 08/16/23 History Allergy/AdvReac Type Severity Reaction Status Date / Time Sulfa (Sulfonamide Allergy Hives Verified 08/17/23 08:37 Antibiotics) codeine AdvReac Vomiting Verified 08/17/23 08:37 Family History Father Colon cancer Surgical History Hx of total knee arthroplasty History of tonsillectomy and adenoidectomy Hx of removal of cyst Hx of tubal ligation Hx of total knee arthroplasty History of bunionectomy of right great toe Hx of colonoscopy Social History Smoking Status: Former smoker alcohol intake: never substance use type: does not use
--- NOTE | 2023-08-17 09:31 | HP.PCM_ITS ---
History and Physical Date of Admission: 08/17/23 Intake Vital Signs 01/19/2315:43 07/19/2411:52 Height 5 ft 8 in 5 ft 7 in Weight: 209 lb 213 lb 6 oz BMI 31.7 33.4 BP 126/84 H 131/68 H Blood Pressure Location Lt brachial Lt brachial Position Sitting Sitting Respiration 14 18 Pulse 73 72 Pulse Source Monitor Monitor Temp 98.2 F 97.3 F L Temp Source Temporal Temporal Pulse Oximetry (%) 96 97 Oxygen Delivery Method room air room air Intake Visit Reasons: COLONOSCOPY & EGD FOR GERD Chief Complaint: colonoscopy and GERD Allergies Sulfa (Sulfonamide Antibiotics) Allergy (Verified 07/19/23 12:54) Hivescodeine Adverse Reaction (Verified 07/19/23 12:54) Vomiting Medications ?Medication ?Instructions ?Recorded ?Confirmed ?Type cholecalciferol (vitamin D3) 25 1,000 unit PO DAILY SUPPLEMENT 01/22/14 01/19/23 History mcg (1,000 unit) tablet (Vitamin D3) bhoiirtc-hpa-uyfxw acid 0.4 1 ea PO DAILY SUPPLEMENT 01/22/14 01/19/23 History mg-lycopene 300 mcg-lutein 250 mcg tablet (Centrum Silver) nortriptyline 25 mg capsule 25 mg PO QHS SLEEP 01/22/14 01/19/23 History omeprazole 20 mg capsule,delayed 20 mg PO BID GERD 01/22/14 01/19/23 History release levothyroxine 100 mcg tablet 100 mcg PO MOTUWETHFRSA@0600 02/13/14 01/19/23 History THYROID levothyroxine 100 mcg tablet 150 mcg PO AVILES@0600 THYROID 02/13/14 01/19/23 History (Levoxyl) aspirin 81 mg tablet,delayed 81 mg PO QHS HEART HEALTH 05/19/18 01/19/23 History release (Aspir-) lorazepam 0.5 mg tablet 0.25 mg PO BID ANXIETY 05/19/18 01/19/23 History Muscle Cramp Pain Reliever 1 tab PO/SL DAILY SUPPLEMENT 09/15/21 01/19/23 History carvedilol 12.5 mg tablet 12.5 mg PO BID BP 09/15/21 01/19/23 History coenzyme Q10 100 mg capsule 100 mg PO QHS SUPPLEMENT 09/15/21 01/19/23 History (CoQ-10) escitalopram oxalate 5 mg tablet 5 mg PO DAILY 09/15/21 01/19/23 History (Lexapro) pravastatin 40 mg tablet 40 mg PO QHS CHOLESTEROL 09/15/21 01/19/23 History vitamin B complex 1 cap PO DAILY SUPPLEMENT 09/15/21 01/19/23 History PFSH Medical History (Updated 07/21/23 @ 13:[address] Nayan Arita MD) Acute otitis externa of left ear Loss of hearing Wears glasses Wears dentures Anxiety History of steroid therapy Thyroid disease Ambulates with cane Arthritis Bladder disease History of renal disease High cholesterol Back pain Migraine headache History of IBS Gastric reflux Shortness of breath on exertion Former smoker Leg cramps History of pain when walking History of edema Hypertension Surgical History (Updated 07/19/23 @ 12:52 by Janina Perdomo LPN) History of tonsillectomy and adenoidectomy Hx of removal of cyst Hx of tubal ligation Hx of total knee arthroplasty History of bunionectomy of right great toe Hx of colonoscopy Family History (Updated 07/19/23 @ 12:52 by Janina Perdomo LPN) Father Colon cancer Social History (Updated 07/19/23 @ 12:52 by Janina Perdomo LPN) Smoking Status: Former smoker alcohol intake: never substance use type: does not use HPI HPI HPI: Patient is a 72-year-old female who is here for 2 issues. Firstly she says that her GERD is becoming worse. She said she feels like she is regurgitating food as soon as she wakes up. She is also here for colonoscopy as she has a family history of colon cancer and requires colonoscopies every 5 years. Her last colonoscopy was 5 years ago and was normal. Patient has a family history of colon cancer in her sister. She denies any abdominal pain or blood in the stool. She says she has severe acid reflux. ROS General General: No weight change, appetite, fatigue, colon cancer, breast cancer or weakness HEENT HEENT: No difficulty swallowing, eye injury, eye surgery, swollen glands or hoarseness Endo Endocrine: Yes thyroid disease; No diabetes mellitus, thyroid cancer, Hair loss, heat intolerance or cold intolerance Skin Skin: No rash or changing moles Musc Musculoskeletal: Yes back problems and arthritis; No rheumatoid arthritis, gout or joint pain Cardio Cardiovascular: Yes high blood pressure; No murmur, pacemaker, heart disease, atrial fibrillation, heart attack, heart stent, palpitations, shortness of breat with exertion or chest pain Psych Psychiatric: Yes anxiety; No depression or hearing voices Resp Respiratory: No shortness of breath, No sleep apnea, No cough, No COPD, No asthma, No emphysema and No wheezing Gastro Gastrointestinal: Yes abdominal pain, Yes nausea or vomiting, No diarrhea, No constipation, No blood in stool, Yes acid reflux, No hemorrhoids, No ulcers, No gallbladder problem and No black,tarry stools Augusto Hematologic: Yes blood thinners, No blood disorders, No bleeding, No anemia and No blood clots Additional Details: 81mg aspirin Neuro Neurologic: No numbness, No tingling and No weakness Exam Const General: cooperative Orientation: alert and oriented x3 HENMT Head: normal to inspection Neck Neck: normal visual inspection and full ROM Chest Chest palpation & inspection: normal inspection of the chest Resp Effort & Inspection: normal respiratory effort Auscultation: clear to auscultation bilaterally Cardio Rate: regular rate Rhythm: regular rhythm GI Inspection: non-distended Palpation: soft and nontender Skin General: no rashes or lesions noted Neuro General: patient alert and patient oriented x3 Extrem General: full ROM Psych Appearance: grossly normal Mental Status: mental status grossly normal Assessment and Plan Assessment and Plan (1) Family history of colon cancer: Status: Acute Plan: Plan for surveillance colonoscopy. I explained endoscopy in detail to the patient. I explained the risks including but not limited to stroke or heart attack with anesthesia, perforation of the GI tract, bleeding, infection. I explained that any of these could necessitate further emergency surgery. The p atient understands and all questions were answered sufficiently. The patient wishes to proceed with procedure. (2) GERD (gastroesophageal reflux disease): Status: Acute Plan: The patient is having severe GERD which is worsening despite being on twice a day PPI. I discussed performing EGD to evaluate for hiatal hernia as well as esophagitis. I also discussed possible Zohaib fundoplication with her and she would like to have pH probe placed in case she is interested in the surgery. I will proceed with EGD and pH probe placement as well as surveillance colonoscopy. She may continue her aspirin for the procedure. Nayan Arita MD Pager: [facility] [address] [place] [address] [address] [place] [address] Office: I have examined the patient and the H&P has been reviewed. There are no clinical changes since date of exam.
--- NOTE | 2023-08-17 10:22 | PCM.POST.ANE ---
Anesthesia: Postop Eval I Current Vital Signs Temperature: 97.4 F Pulse Rate: 70 Blood Pressure: 109/73 Respiratory Rate: 16 Pulse Ox: 94 Oxygen Delivery Method: Room Air Assessment Airway patent: Yes Spontaneous unlabored respirations: Yes Mental status: Asleep nausea: No Vomiting: No Anesthesia Complication: No Fluid Hydration Crystalloid volume administer (ml): 500 Total IV fluid infused: 500 Progress Note Anesthesia document: Postop Eval 1 completed: Yes
--- NOTE | 2023-08-17 10:28 | OP.EGD_ITS ---
Patient Name: Jessica Ray Procedure Date: 08/17/2023 9:45 AM Date of : 1950 Age: 72 Procedure: Upper GI endoscopy Indications: Heartburn, Esophageal reflux Providers: Nayan Arita MD Referring MD: Bienvenido Morales Medicines: Propofol per Anesthesia Patient Profile: This is a 72 year old female. Refer to note in patient chart for documentation of history and physical. Complications: No immediate complications. Estimated blood loss: Minimal. Procedure: Pre-Anesthesia Assessment: - Prior to the procedure, a History and Physical was performed, and patient medications and allergies were reviewed. The patient's tolerance of previous anesthesia was also reviewed. The risks and benefits of the procedure and the sedation options and risks were discussed with the patient. All questions were answered, and informed consent was obtained. Prior Anticoagulants: The patient has taken no anticoagulant or antiplatelet agents except for aspirin. After reviewing the risks and benefits, the patient was deemed in satisfactory condition to undergo the procedure. After obtaining informed consent, the endoscope was passed under direct vision. Throughout the procedure, the patient's blood pressure, pulse, and oxygen saturations were monitored continuously. The Endoscope was introduced through the mouth, and advanced to the third part of duodenum. The upper GI endoscopy was accomplished without difficulty. The patient tolerated the procedure well. Scope In: 9:54:23 AM Scope Out: 10:03:49 AM Total Procedure Duration Time 0 hours 9 minutes 26 seconds Findings: A medium-sized hiatal hernia was present. LA Grade A (one or more mucosal breaks less than 5 mm, not extending between tops of 2 mucosal folds) esophagitis with no bleeding was found at the gastroesophageal junction. Biopsies were taken with a cold forceps for histology. Localized mild inflammation characterized by shallow ulcerations was found in the duodenal bulb. Biopsies were taken with a cold forceps for histology. The BUTLER capsule with delivery system was introduced through the mouth and advanced into the esophagus, such that the BUTLER pH capsule was positioned 29 cm from the incisors, which was 6 cm proximal to the GE junction. Suction was applied to the well of the BUTLER pH capsule to suck in the adjacent mucosa of the esophagus using the external vacuum pump set at a minimum vacuum pressure of 550 mmHg for 30 seconds. The BUTLER pH capsule was then deployed by depressing the plunger on top of the handle to advance the locking pin into the mucosa, thereby attaching the capsule to the esophagus. The plunger was then rotated a quarter turn clockwise to release the capsule from the delivery system. The delivery system was then withdrawn. Endoscopy was utilized for probe placement and diagnostic evaluation. Impression: - Medium-sized hiatal hernia. - LA Grade A reflux esophagitis with no bleeding. Biopsied. - Duodenitis. Biopsied. - The BUTLER pH capsule was positioned 29 cm from the incisors, which was 6 cm proximal to the GE junction. Recommendation: - Discharge patient to home. - Resume previous diet. - Continue present medications. - Await pathology results. - Return to my office in 2 weeks. Procedure Code(s): --- Professional --- 00000, Esophagogastroduodenoscopy, flexible, transoral; with biopsy, single or multiple Diagnosis Code(s): --- Professional --- K44.9, Diaphragmatic hernia without obstruction or gangrene K21.00, Gastro-esophageal reflux disease with esophagitis, without bleeding K29.80, Duodenitis without bleeding R12, Heartburn CPT copyright 2021 [employer]. All rights reserved. The codes documented in this report are preliminary and upon christian science reader review may be revised to meet current compliance requirements. Nayan Arita MD 08/17/2023 10:27:46 AM This report has been signed electronically. Number of Addenda: 0 Note Initiated On: 08/17/2023 9:45 AM
--- NOTE | 2023-08-17 10:28 | OP.CCLET_ITS ---
08/17/2023 Bienvenido Morales [address] [place] [address] Re : Upper GI endoscopy procedure for Jessica Ray Dear Dr. Morales This procedure was performed on Thursday, August 17, 2023. My impressions and recommendations are as follows: Impressions : - Medium-sized hiatal hernia. - LA Grade A reflux esophagitis with no bleeding. Biopsied. - Duodenitis. Biopsied. - The BUTLER pH capsule was positioned 29 cm from the incisors, which was 6 cm proximal to the GE junction. Recommendations : - Discharge patient to home. - Resume previous diet. - Continue present medications. - Await pathology results. - Return to my office in 2 weeks. My findings are described in the full procedure note, which is enclosed. If I can be of further assistance, please feel free to contact me at Doctor phone number(s): , Work: . Sincerely, Nayan Arita MD 08/17/2023 10:27:46 AM This report has been signed electronically.
--- NOTE | 2023-08-17 10:29 | OP.CCLET_ITS ---
08/17/2023 Bienvenido Morales [address] [place] [address] Re : Colonoscopy procedure for Jessica Ray Dear Dr. Morales This procedure was performed on Thursday, August 17, 2023. My impressions and recommendations are as follows: Impressions : - The entire examined colon is normal on direct and retroflexion views. - No specimens collected. Recommendations : - Discharge patient to home. - Resume previous diet. - Continue present medications. - Repeat colonoscopy is not recommended due to current age (66 years or older) for screening purposes. My findings are described in the full procedure note, which is enclosed. If I can be of further assistance, please feel free to contact me at Doctor phone number(s): , Work: . Sincerely, Nayan Arita MD 08/17/2023 10:29:03 AM This report has been signed electronically.
--- NOTE | 2023-08-17 10:29 | OP.COLON_ITS ---
Patient Name: Jessica Ray Procedure Date: 08/17/2023 10:06 AM Date of : 1950 Age: 72 Procedure: Colonoscopy Indications: High risk colon cancer surveillance: Personal history of colonic polyps Providers: Nayan Arita MD Referring MD: Bienvenido Morales Medicines: Propofol per Anesthesia Patient Profile: This is a 72 year old female. Refer to note in patient chart for documentation of history and physical. Last Colonoscopy: 5 years ago. Complications: No immediate complications. Procedure: Pre-Anesthesia Assessment: - Prior to the procedure, a History and Physical was performed, and patient medications and allergies were reviewed. The patient's tolerance of previous anesthesia was also reviewed. The risks and benefits of the procedure and the sedation options and risks were discussed with the patient. All questions were answered, and informed consent was obtained. Prior Anticoagulants: The patient has taken no anticoagulant or antiplatelet agents except for aspirin. After reviewing the risks and benefits, the patient was deemed in satisfactory condition to undergo the procedure. - Prior to the procedure, a History and Physical was performed, and patient medications and allergies were reviewed. The patient's tolerance of previous anesthesia was also reviewed. The risks and benefits of the procedure and the sedation options and risks were discussed with the patient. All questions were answered, and informed consent was obtained. Prior Anticoagulants: The patient has taken no anticoagulant or antiplatelet agents. After reviewing the risks and benefits, the patient was deemed in satisfactory condition to undergo the procedure. After I obtained informed consent, the scope was passed under direct vision. Throughout the procedure, the patient's blood pressure, pulse, and oxygen saturations were monitored continuously. The pediatric colonoscope was introduced through the anus and advanced to the cecum, identified by appendiceal orifice and ileocecal valve. The colonoscopy was performed without difficulty. The patient tolerated the procedure well. The quality of the bowel preparation was good. The ileocecal valve, appendiceal orifice, and rectum were photographed. Scope In: 10:07:22 AM Scope Withdrawal Time 0 hours 6 minutes 9 seconds Scope Out: 10:17:34 AM Total Procedure Duration Time 0 hours 10 minutes 12 seconds Findings: The entire examined colon appeared normal on direct and retroflexion views. Impression: - The entire examined colon is normal on direct and retroflexion views. - No specimens collected. Recommendation: - Discharge patient to home. - Resume previous diet. - Continue present medications. - Repeat colonoscopy is not recommended due to current age (66 years or older) for screening purposes. Procedure Code(s): --- Professional --- 87924, Colonoscopy, flexible; diagnostic, including collection of specimen(s) by brushing or washing, when performed (separate procedure) Diagnosis Code(s): --- Professional --- Z86.010, Personal history of colonic polyps CPT copyright 2021 [employer]. All rights reserved. The codes documented in this report are preliminary and upon mine car mechanic review may be revised to meet current compliance requirements. Nayan Arita MD 08/17/2023 10:29:03 AM This report has been signed electronically. Number of Addenda: 0 Note Initiated On: 08/17/2023 10:06 AM
--- NOTE | 2023-08-17 11:00 | PCM.POSTANE2 ---
Anesthesia Postop Eval I Sum Postop Eval Completion status Anesthesia document: Postop Eval 1 completed: Yes Anesthesia Postop Eval I Summary Anesthesia Postop Eval I Summary: Anesthesia Postop Eval I: Assessment Summary Airway patent Yes 08/17/23 10:28 [email or web address] Spontaneous unlabored Yes 08/17/23 10:28 [email or web address] respirations Mental status Asleep 08/17/23 10:28 [email or web address] nausea No 08/17/23 10:28 [email or web address] Vomiting No 08/17/23 10:28 [email or web address] Anesthesia Postop Eval I: Fluid Summary Crystalloid volume administer 500 08/17/23 10:28 [email or web address] (ml) Colloids volume administered ( ml) Blood Product volume administered (ml) Total IV fluid infused 500 08/17/23 10:28 [email or web address] Anesthesia Postop Eval I: Summary Notes Anesthesia Complication No 08/17/23 10:28 [email or web address] Anesthesia Complication Comment: Post-operative progress note Anesthesia: Postop Eval II Evaluation Mental status: Awake Pain Level: 0 nausea: No Vomiting: No Complications Anesthesia Complication: No
== END 2023-08-17 11:10 | disposition home or self-care (01) ==
LOC: EN 08:18 → AC 08:20
PROVIDERS: PCP Preventive Medicine Occupational Medicine; Referring Provider Preventive Medicine Occupational Medicine; Visit Provider Surgery
PROC: 0DJD8ZZ Inspection of Lower Intestinal Tract, Via Natural or Artificial Opening Endoscopic (ICD-10-PCS; CPT 45378; principal; 2023-08-17 09:25)
DX: Z12.11 Encounter for screening for malignant neoplasm of colon (principal); K21.00 Gastro-esophageal reflux disease with esophagitis, without bleeding; Z86.010 Personal history of colon polyps; I10 Essential (primary) hypertension; E78.00 Pure hypercholesterolemia, unspecified; K44.9 Diaphragmatic hernia without obstruction or gangrene; Z87.891 Personal history of nicotine dependence; Z80.0 Family history of malignant neoplasm of digestive organs; E07.9 Disorder of thyroid, unspecified; K29.80 Duodenitis without bleeding; Z79.01 Long term (current) use of anticoagulants; Z79.82 Long term (current) use of aspirin; Z79.890 Hormone replacement therapy; Z79.899 Other long term (current) drug therapy
CPT/HCPCS: 43239; G0105; 88305; 88312; J2405

== ENCOUNTER → 2023-09-10 | Day surgery (SDC) | payer MEDICARE, SELFPAY ==
[2023-09-10 08:05] VITALS: PULSE 75; RESP 15; TEMP 36.4; O2SAT 100
[2023-09-10] MEDS: Lidocaine Jelly 2% 20 ML Syringe (URO-JET) 1 APPLIC (08:09)
[2023-09-10 08:11] VITALS: BP 157/80
== END | disposition home or self-care (01) ==
PROVIDERS: PCP Preventive Medicine Occupational Medicine; Referring Provider Preventive Medicine Occupational Medicine; Visit Provider Surgery
PROC: F00ZJWZ Instrumental Swallowing and Oral Function Assessment using Swallowing Equipment (ICD-10-PCS; CPT 43235; principal; 2023-09-10 07:55)
DX: K21.9 Gastro-esophageal reflux disease without esophagitis (principal); K44.9 Diaphragmatic hernia without obstruction or gangrene
CPT/HCPCS: 91010

== ENCOUNTER 2023-10-04 10:52 | Observation (INO) | payer MEDICARE, SELFPAY ==
[2023-09-24 08:19] LABS: Hematocrit 42.5 % (37-47); Hemoglobin 13.9 g/dL (12.0-15.0); Mean Corp Hgb Conc 32.7 g/dL (32-36); Mean Corpuscular Hgb 31.7 pg (27.0-32.0); Mean Corpuscular Volume 96.8 fL (81-99); Mean Platelet Vol. 11.4 fl (6.2-12.0); Platelet Count 270 K/mm3 (150-450); RBC Distribution Width CV 12.7 % (11.6-14.6); RBC Distribution Width SD 45.7 fl (35.1-43.9); Red Blood Count 4.39 M/mm3 (4.2-5.4); White Blood Count 6.9 K/mm3 (4.4-11.0)
[2023-09-24 08:50] LABS: Thyroid Stim Hormone (TSH) 2.75 uIU/mL (0.358-3.74)
[2023-10-04] VITALS (23 sets, daily range): BP systolic 127–174; BP diastolic 53–121; PULSE 61–77; RESP 14–18; TEMP 35.9–37.2; O2SAT 90–99; BMI 32.8
[2023-10-04] MEDS: Lactated Ringers 1,000 ML 15 ML IV ×2 (06:35→09:00)
--- NOTE | 2023-10-04 07:10 | PCM.HP.BLA ---
History and Physical Date of Admission: 10/04/23 Intake Vital Signs 08/17/2407:39 Height 5 ft 6 in Intake Visit Reasons: discuss ph probe results. Chief Complaint: discuss ph probe results Is patient in pain?: No Allergies Sulfa (Sulfonamide Antibiotics) Allergy (Verified 09/01/23 08:57) Hivescodeine Adverse Reaction (Verified 09/01/23 08:57) Vomiting Medications ?Medication ?Instructions ?Recorded ?Confirmed ?Type cholecalciferol (vitamin D3) 25 1,000 unit PO DAILY SUPPLEMENT 01/22/14 09/01/23 History mcg (1,000 unit) tablet (Vitamin D3) llydqxcl-fwz-bypeb acid 0.4 1 ea PO DAILY SUPPLEMENT 01/22/14 09/01/23 History mg-lycopene 300 mcg-lutein 250 mcg tablet (Centrum Silver) nortriptyline 25 mg capsule 25 mg PO QHS SLEEP 01/22/14 09/01/23 History omeprazole 20 mg capsule,delayed 40 mg PO BID GERD 01/22/14 09/01/23 History release levothyroxine 100 mcg tablet 100 mcg PO MOTUWETHFRSA@0600 02/13/14 09/01/23 History THYROID levothyroxine 100 mcg tablet 150 mcg PO AVILES@0600 THYROID 02/13/14 09/01/23 History (Levoxyl) aspirin 81 mg tablet,delayed 81 mg PO QHS HEART HEALTH 05/19/18 09/01/23 History release (Aspir-) lorazepam 0.5 mg tablet 0.25 mg PO BID ANXIETY 05/19/18 09/01/23 History Muscle Cramp Pain Reliever 1 tab PO/SL DAILY SUPPLEMENT 09/15/21 09/01/23 History carvedilol 12.5 mg tablet 12.5 mg PO BID BP 09/15/21 09/01/23 History coenzyme Q10 100 mg capsule 100 mg PO QHS SUPPLEMENT 09/15/21 09/01/23 History (CoQ-10) escitalopram oxalate 5 mg tablet 5 mg PO DAILY 09/15/21 09/01/23 History (Lexapro) pravastatin 40 mg tablet 40 mg PO QHS CHOLESTEROL 09/15/21 09/01/23 History vitamin B complex 1 cap PO DAILY SUPPLEMENT 09/15/21 09/01/23 History Have you fallen in the past year?: No Subjective Details: Patient is a 72-year-old female following up after her pH probe for her acid reflux. Objective Details: Abdomen is soft and nontender. Coding Level of Care Code Off vis,est,level 3 Diagnoses GERD (gastroesophageal reflux disease) K21.9 Hiatal hernia K44.9 [facility] Medical History Alcohol use Acute otitis externa of left ear Wears glasses Wears dentures Anxiety Thyroid disease Arthritis Bladder disease History of renal disease High cholesterol Back pain Migraine headache Gastric reflux Shortness of breath on exertion Former smoker Leg cramps History of edema Hypertension Surgical History Hx of total knee arthroplasty History of tonsillectomy and adenoidectomy Hx of removal of cyst Hx of tubal ligation Hx of total knee arthroplasty History of bunionectomy of right great toe Hx of colonoscopy Family History Father Colon cancer Social History Smoking Status: Former smoker alcohol intake: never substance use type: does not use Assessment and Plan (No Qualifiers) Assessment and Plan (1) GERD (gastroesophageal reflux disease): Status: Acute (2) Hiatal hernia: Status: Acute Plan Patient has a hiatal hernia and GERD. She is interested in Zohaib fundoplication. I will send her for manometry and schedule her for hiatal hernia repair with Zohaib fundoplication. If the mid extremity shows any issues I will perform a toupee fundoplication instead. I discussed the procedure with her in detail. I discussed the risks including not limited to bleeding, infection, injury to other organs, injury to the esophagus, dysphagia, gas bloat syndrome, need for dilation. I also discussed postoperative diet with her. Nayan Arita MD Pager: [facility] [address] [place] [address], [address] [place] [address] Office: I have examined the patient and the H&P has been reviewed. There are no clinical changes since date of exam. Manometry was reviewed and appeared normal. There is good passage of bolus with normal LES. Plan is to proceed with Zohaib fundoplication and hiatal hernia repair.
--- NOTE | 2023-10-04 07:30 | PCM.PRE.AN2 ---
ASA Classification* ASA Classification ASA Classification: 2 Assessment & Plan Anesthesia* Anesthesia Assessment Anesthesia Assessment: Discussed sedation and/or anesthesia options, risks, benefits, and alternatives with patient/parents/legal guardian/POA. Questions invited. The patient/parents/legal guardian/POA seems to understand and agrees to proceed with anesthesia plan. Reviewed the physical assessment, medical history, allergy history and patient home medications list prior to surgery/procedure/anesthetic and documented any changes. Performed airway and anesthesia risk assessments. Anesthesia Type Anesthesia Type: General (*see written pre anesthesia record for full assessment) Anesthesia Focused Assessment* Temperature: 97.7 F Pulse Rate: 63 Blood Pressure: 131/58 Respiratory Rate: 18 Pulse Ox: 97 Airway Assessment Mouth opens: >3 cm Mallampati Score: II Focused Labs Anesthesia Preop lab: CBC WBC 6.9 K/mm3 (4.4-11.0) 09/24/23 07:56 RBC 4.39 M/mm3 (4.2-5.4) 09/24/23 07:56 Hgb 13.9 g/dL (12.0-15.0) 09/24/23 07:56 Hct 42.5 % (37-47) 09/24/23 07:56 Plt Count 270 K/mm3 (150-450) 09/24/23 07:56 CHEMISTRY Potassium 4.3 mmol/L (3.5-5.1) 04/13/23 10:08 Sodium 140 mmol/L (136-145) 04/13/23 10:08 Magnesium 1.9 mg/dL (1.6-2.6) 09/18/21 15:30 Phosphorus 3.0 mg/dL (2.5-4.9) 04/13/23 10:08 BUN 23 mg/dL (7-18) H 04/13/23 10:08 Creatinine 1.48 mg/dL (0.55-1.02) H 04/13/23 10:08 Glucose 117 mg/dL (74-106) H 04/13/23 10:08 POC Glucose 92 mg/dL (74-106) 09/29/21 06:26 TSH 2.75 uIU/mL (0.358-3.74) 09/24/23 07:56 COAG Pre-Assessment Diagnosis/Proposed Procedure Planned Operative Procedure(s): LAP CARMENCITA FUNDOPLICATION WITH EGD Anesthesia History Anesthesia History - research associate quality control qc: Anesthesia History - research associate quality control qc Hx Hospitalization No 09/23/23 09:34 Any Problems With Anesthesia Yes: N,V 09/23/23 09:34 Cholinesterase deficiency No 09/23/23 09:34 You/Your Family Experience No 09/23/23 09:34 fever (hyperthermia) with Relationship Recent Exposure to Contagious No 10/04/23 06:26 Disease Does patient have nerve No 09/23/23 09:34 stimulator Patient instructed to have device shut off --Does patient have Pacemaker No 10/04/23 06:27 or ICD? When Was Last Pacemaker Check QUESTION #4 FULL TEXT: You/Your Family Experience fever (hyperthermia) with Anesthesia Last Oral Intake Last Oral intake: Last Oral Intake NPO since 21:00 10/04/23 06:27 Meds taken in AM with sips of Yes 10/04/23 06:27 water? Meds patient instructed to take am of surgery PONV PONV - research associate quality control qc: PONV - research associate quality control qc Female Yes 09/23/23 09:34 HX of Motion Sickness Yes 09/23/23 09:34 HX of N/V After Surgery Yes 09/23/23 09:34 Non-Smoker Yes 09/23/23 09:34 Duration of Surgery greater Yes 09/23/23 09:34 than 60 minutes Number of Risk Factors 5 09/23/23 09:34 PONV Score Severe Risk 09/23/23 09:34 Height & Weight Height & Weight: Anesthesia: Height & Weight Height 5 ft 7 in 10/04/23 06:27 Weight: 95.164 kg 10/04/23 06:27 Body Mass Index (BMI) 32.8 10/04/23 06:27 Respiratory Assessment Respiratory Assessment - research associate quality control qc: Respiratory Tract Infection Hx - research associate quality control qc Hx Respiratory Tract Infection No 09/23/23 09:34 STOP Sleep Apnea STOP Sleep Apnea - research associate quality control qc: STOP Sleep Apnea - research associate quality control qc Hx Hypertension Yes: CONTROLLED WITH MED 09/23/23 09:34 Hx Sleep Apnea No 09/23/23 09:34 CPAP No 09/23/23 09:34 BIPAP No 09/23/23 09:34 Do you snore loudly (louder No 09/23/23 09:34 than talking or can be heard Do you often feel tired/ No 09/23/23 09:34 fatigued/ sleepy during daytime? Has anyone observed you stop No 09/23/23 09:34 breathing during sleep? STOP Results Negative 09/23/23 09:34 QUESTION #5 FULL TEXT : Do you snore loudly (louder than talking or can be heard through closed doors)? Tobacco Use History Tobacco Use History - research associate quality control qc: Tobacco Use History - research associate quality control qc Tobacco Use Smoking Status Former smoker 09/23/23 09:34 Hx Tobacco Use No 09/23/23 09:34 Years Smoking Packs Smoked per Day Smoking Cessation Date was No - quit smoking greater 09/23/23 09:34 within the last 15 years than 15 years ago Hx Smoking Cessation Date 03/01/79 09/23/23 09:34 Hx Smoking Cessation No 09/23/23 09:34 Counseling Hematologic Medial History Hematologic Hx - research associate quality control qc: Hematologic Medical Hx - web operations specialist Hx of Blood Transfusion No 09/23/23 09:34 Hx of Transfusion in last 3 No 09/23/23 09:34 Months Date of Last Transfusion (if within last 3 months) Ever experience any problems No 09/23/23 09:34 with transfusion(s)? Specify any problems Hx of Preganancy in last 3 No 09/23/23 09:34 Months Nurse Filling Out Transfusion DSCHRIBER 09/23/23 09:34 & Questions: Date: 09/23/23 09/23/23 09:34 Time: 09:35 09/23/23 09:34 Patient unable to answer at this time (ie. confused, unrespo /Reproduction History /Reproductive History - research associate quality control qc: /Reproductive Hx- research associate quality control qc Hx Now Gestational Age (in weeks): EDC: Hx Hx Para Hx Section SAB No 09/23/23 09:34 Active Medications Active Medications: Current Medications Generic Name Dose Route Start Last Admin Trade Name Freq PRN Reason Stop Dose Admin Cefotetan Disodium 2 gm/ 100 mls @ 200 mls/hr 10/04/23 07:30 Sodium Chloride IV 10/04/23 07:59 PREOP ONE Lactated Ringer's 1,000 mls @ 15 mls/hr 10/04/23 06:00 10/04/23 06:35 IV 15 mls/hr .Q48H SANDIP Administration PFSH Medical History History of hiatal hernia Alcohol use Acute otitis externa of left ear Wears glasses Wears dentures Anxiety Thyroid disease Arthritis Bladder disease History of renal disease High cholesterol Back pain Migraine headache Gastric reflux Shortness of breath on exertion Former smoker Leg cramps History of edema Hypertension Home Medications ?Medication ?Instructions ?Recorded ?Last Taken ?Type cholecalciferol (vitamin D3) 25 1,000 unit PO DAILY SUPPLEMENT 01/22/14 10/03/23 08:00 History mcg (1,000 unit) tablet (Vitamin D3) qjwvdeud-dhi-hftkp acid 0.4 1 ea PO DAILY SUPPLEMENT 01/22/14 10/03/23 08:00 History mg-lycopene 300 mcg-lutein 250 mcg tablet (Centrum Silver) nortriptyline 25 mg capsule 25 mg PO QHS SLEEP 01/22/14 10/03/23 21:00 History omeprazole 20 mg capsule,delayed 40 mg PO BID GERD 01/22/14 10/04/23 05:00 History release levothyroxine 100 mcg tablet 100 mcg PO MOTUWETHFRSA@0600 02/13/14 10/04/23 05:00 History THYROID levothyroxine 100 mcg tablet 150 mcg PO AVILES@0600 THYROID 02/13/14 10/03/23 History (Levoxyl) aspirin 81 mg tablet,delayed 81 mg PO QHS HEART HEALTH 05/19/18 09/19/23 History release (Aspir-) lorazepam 0.5 mg tablet 0.25 mg PO BID ANXIETY 05/19/18 10/04/23 05:00 History Muscle Cramp Pain Reliever 1 tab PO/SL DAILY SUPPLEMENT 09/15/21 10/03/23 08:00 History coenzyme Q10 100 mg capsule 100 mg PO QHS SUPPLEMENT 09/15/21 10/03/23 21:00 History (CoQ-10) pravastatin 40 mg tablet 40 mg PO QHS CHOLESTEROL 09/15/21 10/03/23 21:00 History vitamin B complex 1 cap PO DAILY SUPPLEMENT 09/15/21 10/03/23 08:00 History carvedilol 6.25 mg tablet 6.25 mg PO BID 09/23/23 10/04/23 05:00 History Allergy/AdvReac Type Severity Reaction Status Date / Time Sulfa (Sulfonamide Allergy Hives Verified 10/04/23 06:21 Antibiotics) codeine AdvReac Vomiting Verified 10/04/23 06:21 Family History Father Colon cancer Surgical History Hx of total knee arthroplasty History of tonsillectomy and adenoidectomy Hx of removal of cyst Hx of tubal ligation Hx of total knee arthroplasty History of bunionectomy of right great toe Hx of colonoscopy Social History Smoking Status: Former smoker alcohol intake: never substance use type: does not use Review of Systems (Anesthesia) ROS Narrative System reviewed and no additional complaints, except as documented.
[2023-10-04] MEDS: Cefotetan 2 GM in 0.9% NS 100 ML IV (07:36)
[2023-10-04] MEDS: Bupiv/Epi 0.25% 30 ML Vial (09:54)
--- NOTE | 2023-10-04 10:15 | PCM.POST.ANE ---
Anesthesia: Postop Eval I Current Vital Signs Temperature: 96.6 F Pulse Rate: 77 Blood Pressure: 134/119 Respiratory Rate: 14 Pulse Ox: 93 Oxygen Delivery Method: Room Air Assessment Airway patent: Yes Spontaneous unlabored respirations: Yes Mental status: Awake and Calm nausea: No Vomiting: No Anesthesia Complication: No Fluid Hydration Crystalloid volume administer (ml): 1,400 Total IV fluid infused: 1,400 Progress Note Anesthesia document: Postop Eval 1 completed: Yes
--- NOTE | 2023-10-04 10:23 | POSTOPAN2_ITS ---
Anesthesia Postop Eval I Sum Postop Eval Completion status Anesthesia document: Postop Eval 1 completed: Yes Anesthesia Postop Eval I Summary Anesthesia Postop Eval I Summary: Anesthesia Postop Eval I: Assessment Summary Airway patent Yes 10/04/23 10:16 VARSITY [email or web address] Spontaneous unlabored Yes 10/04/23 10:16 VARSITY [email or web address] respirations Mental status Awake,Calm 10/04/23 10:16 VARSITY [email or web address] nausea No 10/04/23 10:16 VARSITY [email or web address] Vomiting No 10/04/23 10:16 VARSITY [email or web address] Anesthesia Postop Eval I: Fluid Summary Crystalloid volume administer 1,400 10/04/23 10:16 VARSITY [email or web address] (ml) Colloids volume administered ( ml) Blood Product volume administered (ml) Total IV fluid infused 1,400 10/04/23 10:16 VARSITY [email or web address] Anesthesia Postop Eval I: Summary Notes Anesthesia Complication No 10/04/23 10:16 VARSITY [email or web address] Anesthesia Complication Comment: Post-operative progress note Anesthesia: Postop Eval II Evaluation Mental status: Awake Pain Level: 0 nausea: No Vomiting: No
--- NOTE | 2023-10-04 10:23 | PCM.POSTANE2 ---
Anesthesia Postop Eval I Sum Postop Eval Completion status Anesthesia document: Postop Eval 1 completed: Yes Anesthesia Postop Eval I Summary Anesthesia Postop Eval I Summary: Anesthesia Postop Eval I: Assessment Summary Airway patent Yes 10/04/23 10:16 CLINICAL [email or web address] Spontaneous unlabored Yes 10/04/23 10:16 CLINICAL OFFICE [email or web address] respirations Mental status Awake,Calm 10/04/23 10:16 CLINICAL OFFICE [email or web address] nausea No 10/04/23 10:16 CLINICAL OFFICE [email or web address] Vomiting No 10/04/23 10:16 CLINICAL OFFICE [email or web address] Anesthesia Postop Eval I: Fluid Summary Crystalloid volume administer 1,400 10/04/23 10:16 CLINICAL OFFICE [email or web address] (ml) Colloids volume administered ( ml) Blood Product volume administered (ml) Total IV fluid infused 1,400 10/04/23 10:16 CLINICAL OFFICE [email or web address] Anesthesia Postop Eval I: Summary Notes Anesthesia Complication No 10/04/23 10:16 CLINICAL OFFICE [email or web address] Anesthesia Complication Comment: Post-operative progress note Anesthesia: Postop Eval II Evaluation Mental status: Awake Pain Level: 0 nausea: No Vomiting: No
[2023-10-04] MEDS: Ketorolac 15 MG/ML Vial IV ×2 (11:03→21:33)
--- NOTE | 2023-10-04 11:15 | OP.PCM_ITS ---
Report of Operation Date of Procedure: 10/04/23 Pre-Operative Diagnosis: Hiatal hernia, GERD Post-Operative Diagnosis: Same Surgery/Procedure Performed:: 1. Laparoscopic hiatal hernia repair with Zohaib fundoplication 2. EGD Type of Anesthesia: General/Regional Estimated Blood Loss (mL): 20 Description of Procedure: Patient was brought back to the operating room and general anesthesia was induced. The abdomen was prepped and draped in the usual sterile fashion. A midline incision was made superior to the umbilicus and deepened to the fascia which was elevated and incised. Port was placed into the abdomen is insufflated 15 mmHg. Next a 5 mm port was placed in the subxiphoid space under direct visualization. The port was removed and a Ross liver retractor was placed into the abdomen under direct visualization and used to elevate the left lobe of the liver. Next under direct visualization a 5 mm port was placed in the right upper quadrant as well as 2 ports in the left upper quadrant. The patient was placed in steep Trendelenburg position. The patient had a large hiatal hernia with fat and omentum contained. The contents were reduced. The right crura was identified and skeletonized anteriorly and the hiatal hernia was entered and the hernia sac was dissected free from the side. Next the greater curvature was retracted and the short gastric vessels were taken down using harmonic scalpel all the way to gastrosplenic ligament which was taken down. Once the stomach was fully mobilized the left crura was dissected free and the esophagus was freed from the left crura. The esophagus was inspected and both vagus nerves were identified and spared. The esophagus was dissected free circumferentially to allow for plenty of space intra-abdominal he. Next the crura was reapproximated using several interrupted 0 Surgidac sutures. The NG was removed. Next the stomach was brought behind the esophagus and there appeared to be no tension. Next a 54 [place]i bougie was placed by anesthesia without any complication. The wrap was then completed using 0 Surgidac suture and the top suture included the diaphragm as well. Next a suture was used from the back of the stomach to the crura. Next the patient was placed flat and the abdomen was instilled with water. An EGD was performed and a well-lubricated scope was placed through the mouth and down into the esophagus and into the stomach. Is passed through the esophagus into the stomach without any resistance. Retroflexion showed a good wrap. There is no bleeding. Leak test was normal with no bubbling of the fluid. Next the abdomen was suctioned dry and inspected once more and there was good hemostasis. After changing gown and gloves the midline fascia was closed with interrupted 0 Vicryl suture. Subcutaneous tissues were irrigated with saline and injected with local anesthetic. Incisions were closed with interrupted 4 Monocryl sutures and Steri-Strips. Bandages were applied and patient was woken and taken to PACU in stable condition. Admit VTE Documentation VTE Mechan Device Prophylaxis: SCD's
--- NOTE | 2023-10-04 11:50 | SUR.PHASEII ---
Patient awaiting room on [facility].
[2023-10-04] MEDS: 0.9% Normal Saline (1000mL) 1,000 ML 100 ML IV (18:30)
[2023-10-04] MEDS: Carvedilol 6.25 MG Tablet PO (22:07)
[2023-10-04] MEDS: Pravastatin 40 MG Tablet PO (22:07)
[2023-10-04] MEDS: LORazepam 0.5 MG Tablet 0.25 MG PO (22:07)
[2023-10-04] MEDS: Nortriptyline 25 MG Capsule PO (22:28)
[2023-10-05 01:00] VITALS: BP 143/64; PULSE 72; RESP 16; TEMP 36.8; O2SAT 99
[2023-10-05 03:32] VITALS: BP 152/95; PULSE 76; RESP 16; TEMP 36.8; O2SAT 97
[2023-10-05] MEDS: 0.9% Normal Saline (1000mL) 1,000 ML 100 ML IV (05:27)
[2023-10-05] MEDS: Ketorolac 15 MG/ML Vial IV (05:27)
--- NOTE | 2023-10-05 06:43 | PN.SURG_ITS ---
Subjective Subjective Patient reports doing well overnight with no reflux. She is having some bilateral shoulder pain. She reports passing flatus. Denies any nausea or vomiting. Objective Data Objective Data Vital Signs: Vital Signs Temp Pulse Resp BP Pulse Ox O2 Del Method 98.3 F 76 16 152/95 H 97 Room Air 10/05/23 03:32 10/05/23 03:32 10/05/23 03:32 10/05/23 03:32 10/05/23 03:32 10/05/23 03:32 Oxygen Delivery Method Room Air Weight: 209 lb 12.811 oz Body Mass Index (BMI) 32.8 Intake & Output: Intake and Output for Last 24 Hours 10/03/23 10/04/23 10/05/23 23:59 23:59 23:59 Intake Total 1100 / 1100 1000 / 1000 Balance 1100 / 1100 1000 / 1000 Lab / Micro Data 09/24/23 07:56 Physical Exam Const oriented x3 and no apparent distress Resp normal respiratory effort Cardio regular rate and regular rhythm GI soft to palpation Palpation: tender Assessment & Plan Assessment/Plan (1) Hiatal hernia: PLAN: Patient is doing well after hiatal hernia repair. I will order clear liquids today and advance to full liquids. Once she is tolerating full liquids she will be discharged home. She is given postoperative instructions and postoperative diet instructions. Nayan Arita MD Pager: [facility] [address] [place] [address], [address] [place] [phone] Office:
[2023-10-05 07:01] LABS: Absolute Lymphocyte Count 2.05 X10^3/uL (0.83-4.51); Absolute Neutrophil Count 7.7 X10^3/uL (2.0-7.7); Basophil# 0.01 X10^3/uL; Basophil% 0.1 % (0-1); Hematocrit 36.5 % (37-47); Lymphocyte # 2.05 X10^3/ul (0.83-4.51); Lymphocyte % 18.9 % (19-41); Mean Corp Hgb Conc 32.9 g/dL (32-36); Mean Corpuscular Hgb 31.9 pg (27.0-32.0); Mean Corpuscular Volume 97.1 fL (81-99); Mean Platelet Vol. 12.2 fl (6.2-12.0); Monocyte# 1.03 X10^3/uL; Monocyte% 9.5 % (0-10); NRBC Flagged by Analyzer 0 % (0-5); Neutrophil # 7.71 X10^3/uL (2.7-7.7); Neutrophil % 70.9 % (47-70); Platelet Count 244 K/mm3 (150-450); RBC Distribution Width CV 12.9 % (11.6-14.6); RBC Distribution Width SD 45.5 fl (35.1-43.9); Red Blood Count 3.76 M/mm3 (4.2-5.4); White Blood Count 10.9 K/mm3 (4.4-11.0)
[2023-10-05 07:07] LABS: Anion Gap 4 (5-15); BUN 20 mg/dL (7-18); Calcium,Total 8.3 mg/dL (8.5-10.1); Chloride 109 mmol/L (98-107); Creatinine, Serum 1.43 mg/dL (0.55-1.02); EST Glomerular Filtration Rate 38 mL/min (>60); Est Glom Filt Rate - Afr Amer 46 mL/min (>60); Glucose 117 mg/dL (74-106); Potassium 4.5 mmol/L (3.5-5.1); Sodium Level 140 mmol/L (136-145)
[2023-10-05 08:00] VITALS: BP 128/56; PULSE 67; RESP 18; TEMP 36.7; O2SAT 99
[2023-10-05] MEDS: Carvedilol 6.25 MG Tablet PO (09:37)
[2023-10-05] MEDS: Levothyroxine 100 MCG Tablet PO (09:38)
--- NOTE | 2023-10-05 10:15 | DCINST_ITS ---
Discharge Instructions Diet Discharge Diet: - (full liquid diet) Activity Discharge Activity: May Drive (in 2-3 days and when off narcotics) and May Shower Lifting Restrictions: 15 lbs for 4 weeks Additional Activity Instructions:: Resume aspirin on wednesday. Take Ibuprofen and tylenol for pain, oxycodone for breakthrough pain Dressing / Incision Call your doctor if your incision/area has: Continuous Slow Oozing, Sudden Increased Bleeding, Increased Pain/ Swelling, Increased Redness, Foul Smelling Discharge and Swelling at the incision site Call your doctor if you observe: Fever of 101 or Higher Remove Dressing in: 1 day (Remove clear bandages tomorrow, remove steri strips in 7-10 days) Cleanse incision/area with: Soap & Water Follow Up Care Please Follow Up With: Nayan Arita MD When: Please call to schedule 1 week follow up appointment. [phone] Test Results: Test results from this visit will be discussed in further detail at your follow- up appointment, if applicable. Discharge Plan Admission Admit Date/Time: 10/04/23 10:52 Attending Provider: Nayan Arita Primary Care Provider: Bienvenido Morales Discharge Orders/Prescriptions Prescriptions: New oxycodone 5 mg tablet 5 - 10 mg PO Q6H PRN (Reason: pain) 5 Days Qty: 20 0RF Continued nortriptyline 25 MG capsule 25 mg PO QHS Patient Comments: DEPRESSION Centrum Silver 1 EACH tablet 1 ea PO DAILY Patient Comments: SUPPLEMENT cholecalciferol (vitamin D3) [Vitamin D3] 1,000 UNIT tablet 1,000 unit PO DAILY Patient Comments: SUPPLEMENT levothyroxine 100 MCG tablet 100 mcg PO MOTUWETHFRSA@0600 Patient Comments: THYROID levothyroxine [Levoxyl] 100 MCG tablet 150 mcg PO AVILES@0600 Patient Comments: THYROID aspirin [Aspir-81] 81 MG tablet,delayed release (DR/EC) 81 mg PO QHS lorazepam 0.5 MG tablet 0.25 mg PO BID pravastatin 40 mg Tablet 40 mg PO QHS coenzyme Q10 [CoQ-10] 100 mg Capsule 100 mg PO QHS Muscle Cramp Pain Reliever 1 tab PO/SL DAILY vitamin B complex Capsule 1 cap PO DAILY carvedilol 6.25 mg tablet 6.25 mg PO BID Discontinued omeprazole 20 MG capsule 40 mg PO BID Patient Comments: ACID REFLUX Referrals / Follow Up: Bienvenido Morales DO [Primary Care Provider] - Disposition Disposition (needs filled in before D/C Order can be placed): Home, Self Care
[2023-10-05] MEDS: LORazepam 0.5 MG Tablet 0.25 MG PO (10:45)
[2023-10-05 13:42] VITALS: BP 137/66; PULSE 62; RESP 18; TEMP 36.7; O2SAT 98
== END 2023-10-05 15:26 | disposition home or self-care (01) ==
LOC: SDC 17:27 → MS3 17:27
PROVIDERS: Anesthesiology; Admitting Provider Surgery; PCP Preventive Medicine Occupational Medicine; Referring Provider Surgery; Visit Provider Surgery
PROC: (CPT 43325; principal; 2023-10-04 07:10)
DX: K44.9 Diaphragmatic hernia without obstruction or gangrene (principal); M25.511 Pain in right shoulder; E78.00 Pure hypercholesterolemia, unspecified; Z87.891 Personal history of nicotine dependence; K21.9 Gastro-esophageal reflux disease without esophagitis; M25.512 Pain in left shoulder; I10 Essential (primary) hypertension; Z79.899 Other long term (current) drug therapy; Z79.82 Long term (current) use of aspirin; Z79.890 Hormone replacement therapy; E07.9 Disorder of thyroid, unspecified
CPT/HCPCS: 43281; 00790; 36415; 80048; 84443; 85025; 85027; 93005; 96361; 96374; 96376; 99221; J7030; J7120; G0378; J2405

== ENCOUNTER → 2023-12-17 | Outpatient (CLI) | payer MEDICARE, SELFPAY ==
[2023-12-17 10:04] LABS: Albumin, Serum 3.7 g/dL (3.2-5.0); BUN 22 mg/dL (7-18); BUN/Creat Ratio 14.3 RATIO (10-20); Calcium,Total 9.2 mg/dL (8.5-10.1); Chloride 106 mmol/L (98-107); Creatinine, Serum 1.54 mg/dL (0.55-1.02); EST Glomerular Filtration Rate 35 mL/min (>60); Est Glom Filt Rate - Afr Amer 42 mL/min (>60); Glucose 129 mg/dL (74-106); Phosphorus 3.4 mg/dL (2.5-4.9); Potassium 3.8 mmol/L (3.5-5.1); Sodium Level 139 mmol/L (136-145)
== END | disposition home or self-care (01) ==
LOC: POLAB3 09:39
PROVIDERS: PCP Preventive Medicine Occupational Medicine; Visit Provider Internal Medicine Nephrology
DX: N18.32 Chronic kidney disease, stage 3b (principal)
CPT/HCPCS: 36415; 80069

== ENCOUNTER → 2024-02-08 | Outpatient (CLI) | payer MEDICARE, SELFPAY ==
[2024-02-08 11:12] LABS: ALB/GLOB Ratio 0.9 RATIO (0.9-2.4); AST(SGOT) 20 U/L (15-37); Alanine Aminotransfer ALT/SGPT 16 U/L (13-56); Albumin, Serum 3.5 g/dL (3.2-5.0); Alkaline Phosphatase 86 U/L (45-117); Anion Gap 4 (5-15); BUN 23 mg/dL (7-18); BUN/Creat Ratio 16.9 RATIO (10-20); Calcium,Total 9.2 mg/dL (8.5-10.1); Chloride 108 mmol/L (98-107); Cholesterol 169 mg/dL (200); Creatinine, Serum 1.36 mg/dL (0.55-1.02); EST Glomerular Filtration Rate 41 mL/min (>60); Est Glom Filt Rate - Afr Amer 49 mL/min (>60); Globulin 3.7 g/dL (2.2-4.2); Glucose 107 mg/dL (74-106); High Density Lipoprotein 53 mg/dL; Potassium 4.7 mmol/L (3.5-5.1); Protein, Total 7.2 g/dL (6.4-8.2); Sodium Level 139 mmol/L (136-145); Triglycerides 158 mg/dL; Very Low Density Lipoprotein 32 mg/dL (5-40)
[2024-02-08 11:13] LABS: Microalbumin,Random Urine 15.4 mg/L (NO RANGE EST.)
== END | disposition home or self-care (01) ==
LOC: LAB 09:09
PROVIDERS: PCP Preventive Medicine Occupational Medicine; Referring Provider Preventive Medicine Occupational Medicine; Visit Provider Preventive Medicine Occupational Medicine
DX: E03.9 Hypothyroidism, unspecified (principal); E78.5 Hyperlipidemia, unspecified; I10 Essential (primary) hypertension
CPT/HCPCS: 36415; 80053; 80061; 82043; 82570; 84443

== ENCOUNTER → 2024-08-10 | Outpatient (CLI) | payer MEDICARE, SELFPAY ==
--- NOTE | 2024-08-10 09:39 | BI_ITS ---
EXAM: SCRN MAMM (CAD)W/ADRYAN BILAT DATE: 08/10/2024 CLINICAL HISTORY: F, Age 73 y/o , SCREENING No family history. BREAST CANCER RISK ASSESSMENT: Not assessed. TECHNIQUE: Bilateral screening digital breast tomosynthesis with 2D and 3D images. Computer aided detection. COMPARISON: Prior exam(s) dated August 03, 2023.. FINDINGS: TISSUE DENSITY: The breast tissue is heterogenously dense, which may obscure small masses. Bilateral Breast Mammographic Findings: No significant masses, calcifications or other abnormalities are identified. No suspicious masses, areas of developing architectural distortion, or suspicious calcifications. There has been no significant interval change. BI/SCRN MAMM (CAD)W/ADRYAN BILAT IMPRESSION: OVERALL FINAL ASSESSMENT: BIRADS 2 BENIGN FINDING RECOMMENDATION: Routine annual follow-up in 1 Year A letter with findings and recommendations will be mailed to the patient. Reading Location: [place] [id number]
== END | disposition home or self-care (01) ==
PROVIDERS: PCP Preventive Medicine Occupational Medicine; Referring Provider Nurse Practitioner Family; Visit Provider Nurse Practitioner Family
DX: Z12.31 Encounter for screening mammogram for malignant neoplasm of breast (principal)
CPT/HCPCS: 77063; 77067

== ENCOUNTER → 2024-09-06 | Outpatient (CLI) | payer MEDICARE, SELFPAY ==
[2024-09-06 10:22] LABS: Albumin, Serum 4.0 g/dL (3.4-4.8); Anion Gap 10 (5-15); BUN 24 mg/dL (4-19); BUN/Creat Ratio 17.8 RATIO (10-20); Calcium,Total 9.2 mg/dL (7.6-11.0); Carbon Dioxide 23.5 mmol/L (21.0-32.0); Chloride 105 mmol/L (98-108); Glucose 111 mg/dL (70-99); Potassium 4.3 mmol/L (3.3-5.1)
[2024-09-06 15:28] LABS: Creatinine, Urine (random) 161.00 mg/dL (28.00-217.00)
[2024-09-06 15:33] LABS: Microalbumin,Random Urine < 12.0 mg/L (NO RANGE EST.)
== END | disposition home or self-care (01) ==
LOC: POLAB3 09:02
PROVIDERS: PCP Preventive Medicine Occupational Medicine; Visit Provider Internal Medicine Nephrology
DX: I12.9 Hypertensive chronic kidney disease with stage 1 through stage 4 chronic kidney disease, or unspecified chronic kidney disease (principal); N18.32 Chronic kidney disease, stage 3b
CPT/HCPCS: 36415; 80069; 82043; 82570

== ENCOUNTER → 2024-09-26 | Outpatient (CLI) | payer MEDICARE, SELFPAY ==
[2024-09-26 16:03] LABS: AST(SGOT) 16 U/L (<=31); Alanine Aminotransfer ALT/SGPT 13 U/L (<=34); Albumin, Serum 4.0 g/dL (3.4-4.8); Alkaline Phosphatase 89 U/L (35-104); Bilirubin, Direct 0.12 mg/dL (0.00-0.30); Globulin 2.7 g/dL (2.2-4.2)
== END | disposition home or self-care (01) ==
PROVIDERS: PCP Nurse Practitioner Family; Visit Provider Nurse Practitioner Family
DX: R79.89 Other specified abnormal findings of blood chemistry (principal)
CPT/HCPCS: 36415; 80076